=== PATIENT | female | born 1950 | race Caucasian/White ===

== ENCOUNTER 2018-03-03 09:44 | Emergency (ER) | payer MEDICARE ==
[~2018-03-03] VITALS: Ht 157.5 cm; Wt 46.6 kg
[2018-03-03 10:23] LABS: HEMATOCRIT 43.9 % (37.0-47.0); IMMATURE GRANULOCYTES 0.2 % (0.0-1.0); MEAN CELL VOLUME 92.2 fL CALC (80.0-100.0); MEAN CORPUSCULAR HGB 31.5 pG CALC (26.0-32.0); MEAN CORPUSCULAR HGB CONC 34.2 g/L CALC (32.0-36.0); NEUT# 3.4 thou/uL (2.00-7.15); RED BLOOD COUNT 4.76 mill/uL (4.20-5.60); RED CELL DISTRI WIDTH 12.8 % (11.5-15.5)
[2018-03-03 10:38] LABS: ALKALINE PHOSPHATASE 57 u/l (38-126); AMYLASE 89 u/l (30-110); ANION GAP 17 (6-22 (CALC)); BILIRUBIN, TOTAL 0.4 mg/dL (0.0-1.4); BUN 14 mg/dL (8-23); BUN/CREATININE RATIO 20 (12-20 (CALC)); CARBON DIOXIDE 21 mmol/l (22-30); CHLORIDE 111 mmol/l (95-108); CREATININE 0.7 mg/dL (0.5-1.0); GFR > 60 ML/MIN (>=60 (CALC)); GFR FOR AFR.AMER. > 60 ML/MIN (>=60 (CALC)); LIPASE 108 u/l (23-300); MAGNESIUM 1.6 mg/dL (1.6-2.3); SGOT/AST 17 u/l (9-36); SGPT/ALT 28 u/l (11-66); SODIUM 144 mmol/l (137-146); TOTAL PROTEIN 6.9 g/dL (6.3-8.2)
[2018-03-03 10:53] LABS: URINE BILIRUBIN - DIPSTICK NEGATIVE (NEGATIVE); URINE BLOOD DIPSTICK TRACE-INTACT (NEGATIVE); URINE COLOR YELLOW; URINE GLUCOSE - DIPSTICK NEGATIVE (NEGATIVE); URINE KETONE NEGATIVE (NEGATIVE); URINE LEUK ESTERASE NEGATIVE (NEGATIVE); URINE NITRITE - DIPSTICK NEGATIVE (Negative); URINE PH 5.5 (4.5-8.0); URINE PROTEIN - DIPSTICK NEGATIVE (NEG-TRACE); URINE SPECIFIC GRAVITY >=1.030; URINE UROBILINOGEN - DIPSTICK 0.2 E.U./dL (0.2)
[2018-03-03 11:07] LABS: URINE CLARITY CLEAR
[2018-03-03 12:12] LABS: C. DIFFICILE TOXIN A&B NEGATIVE (NEGATIVE)
[2018-03-03] MEDS ORDERED: IMODIUM2 MG PO (12:23)
[2018-03-03] MEDS ORDERED: NEXIUM40 M1 PO (12:23)
[2018-03-03 12:35] VITALS: BP 136/79
== END 2018-03-03 12:34 | disposition home or self-care (01) ==
LOC: ED 09:44
PROVIDERS: Emergency Medicine
DX: R19.7 Diarrhea, unspecified (principal); F17.210 Nicotine dependence, cigarettes, uncomplicated

== ENCOUNTER 2018-03-10 08:36 | Day surgery (SDC) | payer MEDICARE ==
[~2018-03-10] VITALS: Ht 157.5 cm; Wt 45.8 kg
[~2018-03-10 08:36] MED LIST: IMODIUM2 MG PO; NEXIUM40 M1 PO
[2018-03-10 10:56] VITALS: BP 123/73
== END 2018-03-10 11:17 | disposition home or self-care (01) ==
LOC: ENDO 08:36 → ORM 10:00 → ENDO 11:17
PROVIDERS: ATTEND Internal Medicine Gastroenterology
PROC: 0DBP8ZX Excision of Rectum, Via Natural or Artificial Opening Endoscopic, Diagnostic (ICD-10-PCS; principal; 2018-03-10)
PROC: 0DBE8ZX Excision of Large Intestine, Via Natural or Artificial Opening Endoscopic, Diagnostic (ICD-10-PCS; 2018-03-10)
PROC: 0D758ZZ Dilation of Esophagus, Via Natural or Artificial Opening Endoscopic (ICD-10-PCS; 2018-03-10)
PROC: 0DB98ZX Excision of Duodenum, Via Natural or Artificial Opening Endoscopic, Diagnostic (ICD-10-PCS; 2018-03-10)
PROC: 0DB58ZX Excision of Esophagus, Via Natural or Artificial Opening Endoscopic, Diagnostic (ICD-10-PCS; 2018-03-10)
DX: R19.7 Diarrhea, unspecified (principal); R63.4 Abnormal weight loss; R19.5 Other fecal abnormalities; R11.0 Nausea; R14.0 Abdominal distension (gaseous); K22.8 Other specified diseases of esophagus; K22.2 Esophageal obstruction; K29.71 Gastritis, unspecified, with bleeding; K31.819 Angiodysplasia of stomach and duodenum without bleeding; K64.4 Residual hemorrhoidal skin tags; K64.8 Other hemorrhoids; K52.9 Noninfective gastroenteritis and colitis, unspecified; K62.1 Rectal polyp

== ENCOUNTER 2018-03-12 11:42 | Inpatient (IN) | payer MEDICARE ==
[~2018-03-12] VITALS: Ht 157.5 cm; Wt 43.0 kg
[2018-03-12 12:31] LABS: IMMATURE GRANULOCYTES 0.3 % (0.0-1.0); MEAN CELL VOLUME 91.3 fL CALC (80.0-100.0); MEAN CORPUSCULAR HGB CONC 33.9 g/L CALC (32.0-36.0); NEUT# 4.8 thou/uL (2.00-7.15); RED BLOOD COUNT 5.49 mill/uL (4.20-5.60); RED CELL DISTRI WIDTH 12.3 % (11.5-15.5)
[2018-03-12 12:41] LABS: ALBUMIN 4.4 g/dL (3.2-5.0); ALKALINE PHOSPHATASE 63 u/l (38-126); ANION GAP 19 (6-22 (CALC)); BILIRUBIN, TOTAL 0.4 mg/dL (0.0-1.4); BUN 19 mg/dL (8-23); BUN/CREATININE RATIO 23 (12-20 (CALC)); CARBON DIOXIDE 25 mmol/l (22-30); CHLORIDE 100 mmol/l (95-108); CREATININE 0.8 mg/dL (0.5-1.0); GFR > 60 ML/MIN (>=60 (CALC)); GFR FOR AFR.AMER. > 60 ML/MIN (>=60 (CALC)); LIPASE 135 u/l (23-300); POTASSIUM 3.8 mmol/l (3.5-5.1); SGOT/AST 19 u/l (9-36); SGPT/ALT 34 u/l (11-66); SODIUM 140 mmol/l (137-146); TOTAL PROTEIN 7.4 g/dL (6.3-8.2)
[2018-03-12 12:56] LABS: HEMATOCRIT 50.1 % (37.0-47.0)
[2018-03-12 14:45] LABS: URINE BLOOD DIPSTICK TRACE-INTACT (NEGATIVE); URINE COLOR YELLOW; URINE GLUCOSE - DIPSTICK NEGATIVE (NEGATIVE); URINE KETONE 15 mg/dL (NEGATIVE); URINE LEUK ESTERASE NEGATIVE (NEGATIVE); URINE NITRITE - DIPSTICK NEGATIVE (Negative); URINE PH 5.5 (4.5-8.0); URINE PROTEIN - DIPSTICK NEGATIVE (NEG-TRACE); URINE UROBILINOGEN - DIPSTICK 0.2 E.U./dL (0.2)
[2018-03-12 14:48] LABS: URINE BILIRUBIN - DIPSTICK NEGATIVE (NEGATIVE); URINE CLARITY CLEAR
[2018-03-12 20:00] VITALS: BP 106/62
[2018-03-13] VITALS (10 sets, daily range): BP systolic 99–138; BP diastolic 57–82
[2018-03-13 05:04] LABS: MEAN CELL VOLUME 93.4 fL CALC (80.0-100.0); MEAN CORPUSCULAR HGB 31.6 pG CALC (26.0-32.0); MEAN CORPUSCULAR HGB CONC 33.8 g/L CALC (32.0-36.0); RED BLOOD COUNT 3.93 mill/uL (4.20-5.60); RED CELL DISTRI WIDTH 12.2 % (11.5-15.5)
[2018-03-13 05:12] LABS: HEMATOCRIT 36.7 % (37.0-47.0); HEMOGLOBIN 12.4 g/dl (12.0-16.0)
[2018-03-13 05:13] LABS: ANION GAP 13 (6-22 (CALC)); BUN 8 mg/dL (8-23); BUN/CREATININE RATIO 14 (12-20 (CALC)); CARBON DIOXIDE 20 mmol/l (22-30); CHLORIDE 111 mmol/l (95-108); CREATININE 0.6 mg/dL (0.5-1.0); GFR > 60 ML/MIN (>=60 (CALC)); GFR FOR AFR.AMER. > 60 ML/MIN (>=60 (CALC)); MAGNESIUM 1.4 mg/dL (1.6-2.3); POTASSIUM 3.6 mmol/l (3.5-5.1); SODIUM 140 mmol/l (137-146)
[2018-03-13 09:47] LABS: CHOLESTEROL HDL RATIO 3.3 (<4.4 (CALC))
[2018-03-14] VITALS: BP 102/71
[2018-03-14 04:00] VITALS: BP 118/66
[2018-03-14 05:01] LABS: HEMATOCRIT 38.9 % (37.0-47.0); HEMOGLOBIN 12.8 g/dl (12.0-16.0); IMMATURE GRANULOCYTES 0.2 % (0.0-1.0); MEAN CELL VOLUME 95.1 fL CALC (80.0-100.0); MEAN CORPUSCULAR HGB 31.3 pG CALC (26.0-32.0); MEAN CORPUSCULAR HGB CONC 32.9 g/L CALC (32.0-36.0); NEUT# 2.08 thou/uL (2.00-7.15); RED BLOOD COUNT 4.09 mill/uL (4.20-5.60); RED CELL DISTRI WIDTH 12.4 % (11.5-15.5)
[2018-03-14 05:18] LABS: ANION GAP 11 (6-22 (CALC)); BUN 2 mg/dL (8-23); BUN/CREATININE RATIO 4 (12-20 (CALC)); CARBON DIOXIDE 23 mmol/l (22-30); CHLORIDE 112 mmol/l (95-108); CREATININE 0.5 mg/dL (0.5-1.0); GFR > 60 ML/MIN (>=60 (CALC)); GFR FOR AFR.AMER. > 60 ML/MIN (>=60 (CALC)); SODIUM 142 mmol/l (137-146)
[2018-03-14 06:15] VITALS: BP 106/44
[2018-03-14 07:18] VITALS: BP 108/62
[2018-03-14 17:48] VITALS: BP 127/75
[2018-03-14 19:38] VITALS: BP 121/76
[2018-03-15 04:09] VITALS: BP 138/72
[2018-03-15 06:41] LABS: ALKALINE PHOSPHATASE 37 u/l (38-126); ANION GAP 12 (6-22 (CALC)); BILIRUBIN, TOTAL 0.3 mg/dL (0.0-1.4); CARBON DIOXIDE 22 mmol/l (22-30); CHLORIDE 112 mmol/l (95-108); CREATININE 0.5 mg/dL (0.5-1.0); GFR > 60 ML/MIN (>=60 (CALC)); GFR FOR AFR.AMER. > 60 ML/MIN (>=60 (CALC)); HEMATOCRIT 36.6 % (37.0-47.0); HEMOGLOBIN 12.4 g/dl (12.0-16.0); IMMATURE GRANULOCYTES 0.7 % (0.0-1.0); MEAN CELL VOLUME 92.2 fL CALC (80.0-100.0); MEAN CORPUSCULAR HGB 31.2 pG CALC (26.0-32.0); MEAN CORPUSCULAR HGB CONC 33.9 g/L CALC (32.0-36.0); NEUT# 2.69 thou/uL (2.00-7.15); POTASSIUM 3.5 mmol/l (3.5-5.1); RED BLOOD COUNT 3.97 mill/uL (4.20-5.60); RED CELL DISTRI WIDTH 12.1 % (11.5-15.5); SGOT/AST 16 u/l (9-36); SGPT/ALT 28 u/l (11-66); SODIUM 142 mmol/l (137-146)
[2018-03-15 06:45] LABS: BUN < 2 mg/dL (8-23); MAGNESIUM 1.4 mg/dL (1.6-2.3)
[2018-03-15 06:46] LABS: ALBUMIN 2.5 g/dL (3.2-5.0); BUN/CREATININE RATIO < 4 (12-20 (CALC)); TOTAL PROTEIN 4.9 g/dL (6.3-8.2)
[2018-03-15 07:45] VITALS: BP 134/78
[2018-03-15] MEDS ORDERED: FLORASTOR250 M1 PO (10:18)
[2018-03-15] MEDS ORDERED: MAGNESIUM OXID400 M2 PO (10:22)
== END 2018-03-15 13:45 | disposition home or self-care (01) | DRG 392 ==
LOC: ED 11:42 → ED-I 14:48 → ED 15:03 → ICU 15:04 → MS2 03-14 06:15
PROVIDERS: Family Medicine; Nurse Practitioner Family; ADMIT Internal Medicine; ATTEND Internal Medicine
DX: K58.0 Irritable bowel syndrome with diarrhea (principal); E83.42 Hypomagnesemia; Z68.1 Body mass index [BMI] 19.9 or less, adult; E86.0 Dehydration; F17.210 Nicotine dependence, cigarettes, uncomplicated; R63.4 Abnormal weight loss; Z86.010 Personal history of colon polyps
CPT/HCPCS: J3475; Q9967

== ENCOUNTER 2018-07-25 15:13 | Inpatient (IN) | payer MEDICARE ==
[~2018-07-25] VITALS: Ht 157.5 cm; Wt 40.0 kg
[~2018-07-25 15:13] MED LIST changes: +ALPRAZOLAM0.5 MG PO; +BENTYL10 MG PO; +CHOLESTYRAMI PO; +FLORASTOR250 M1 PO; +LOMOTIL2.5 MG PO; +MAGNESIUM OXID400 M2 PO; +METRONIDAZOLE500 MG PO; +VIBERZI75 MG PO; +[UNRECOGNIZED DRUG - CODE] PO
[2018-07-25 15:52] VITALS: BP 100/60
[2018-07-25 16:21] LABS: URINE BILIRUBIN - DIPSTICK NEGATIVE (NEGATIVE); URINE BLOOD DIPSTICK TRACE-LYSED (NEGATIVE); URINE CLARITY CLEAR; URINE COLOR YELLOW; URINE GLUCOSE - DIPSTICK NEGATIVE (NEGATIVE); URINE KETONE NEGATIVE (NEGATIVE); URINE LEUK ESTERASE NEGATIVE (NEGATIVE); URINE NITRITE - DIPSTICK NEGATIVE (Negative); URINE PH 5.5 (4.5-8.0); URINE PROTEIN - DIPSTICK NEGATIVE (NEG-TRACE); URINE SPECIFIC GRAVITY 1.025; URINE UROBILINOGEN - DIPSTICK 0.2 E.U./dL (0.2)
[2018-07-25 16:35] LABS: HEMATOCRIT 44.5 % (37.0-47.0); HEMOGLOBIN 15.1 g/dl (12.0-16.0); IMMATURE GRANULOCYTES 0.4 % (0.0-5.0); MEAN CELL VOLUME 89.2 fL CALC (80.0-100.0); MEAN CORPUSCULAR HGB 30.3 pG CALC (26.0-32.0); MEAN CORPUSCULAR HGB CONC 33.9 g/L CALC (32.0-36.0); NEUT# 10.67 thou/uL (2.00-7.15); RED BLOOD COUNT 4.99 mill/uL (4.20-5.60); RED CELL DISTRI WIDTH 12.2 % (11.5-15.5)
[2018-07-25] MEDS ORDERED: ACETAMINOPHEN500 MG PO (16:38)
[2018-07-25 16:56] LABS: ANION GAP 14 (6-22 (CALC)); BUN 12 mg/dL (8-23); BUN/CREATININE RATIO 14 (12-20 (CALC)); CARBON DIOXIDE 27 mmol/l (22-30); CHLORIDE 105 mmol/l (95-108); CREATININE 0.8 mg/dL (0.5-1.0); GFR > 60 ML/MIN (>=60 (CALC)); GFR FOR AFR.AMER. > 60 ML/MIN (>=60 (CALC)); POTASSIUM 4.1 mmol/l (3.5-5.1); SODIUM 142 mmol/l (137-146)
--- NOTE | 2018-07-25 17:02 | NUR ---
PT ARRIVED ON UNIT VIA W/C SENT BY DR JOINER, ALERT AND ORIENTED X 3, C/O CRAMPING ABD PAIN @ 07/07 AND STATED SHE HAS BEEN HAVING DIARRHEA SINCE DECEMBER 2017, LOST MORE THAN 20 LBS SINCE THEN AND HAVE BEEN TO DOCTORS MANY TIMES WITH NO RESULT. ORIENTED TO ROOM AND CALL LOW, SETTLED IN BED, INFORMED OF NEW ORDERS, WILL CONTINUE TO MONITOR.
--- NOTE | 2018-07-25 19:30 | NUR ---
PT RETURNED TO FLOOR FROM RADIOLOGY FOR CT SCAN AND CHEST XRAY. PT STABLE, BUT VOMITED ONE TIME 100CC JUST UPON ARRIVING TO FLOOR. PT PROVIDED EMESIS BAG AND COOL WASH CLOTH FOR COMFORT. CALL LIGHT AT BEDSIDE.
[2018-07-25 20:00] VITALS: BP 100/63
--- NOTE | 2018-07-25 20:41 | NUR ---
SPOKE WITH PHYSICIAN REGARDING KUB XRAY ORDER/ORDER CANCELLED AT THIS TIME. WILL CONTINUE TO MONITOR PT.
--- NOTE | 2018-07-25 21:15 | NUR ---
PT MEDICATED W/IV ANTIBIOTIC THERAPY, ASSISTED TO RESTROOM AND BACK TO BED, PT ASSESSED. LUNG SOUNDS ARE CLEAR, ABD SOFT/TENDER IN ALL QUADRANTS W/ACTIVE BOWEL SOUNDS. SKIN IS INTACT, NEURO'S INTACT, NO NOTED EDEMA PRESENT, STRONG PULSES/PEDALS, LOCX3, NO SOB. PT REPORTS PAIN IS "STARTING TO RETURN"/WILL MEDICATE ORDERS ALLOW. C/O NAUSEA/PT VOMITED 200CC OF CLEAR LIQUID EMESIS WHILE I WAS IN THE ROOM. SHE REPORTS THAT SHE HAS BEEN DRINKING "LOTS OF WATER, I WAS SO THIRSTY." I TALKED W/THE PT AND ENCOURAGED HER TO SLOW DOWN ON PO WATER INTAKE AND TAKE SMALL SIPS. POC DISCUSSED. TEMP CHECKED AT 99.2. PT HAD 5 BLANKETS ON I DISCUSSED THIS WITH HER, REMOVED ALL BUT ONE BLANKET, ROOM IS TURNED COOL. COOL WASHCLOTH PROVIDED. PT FEELS "CHILLED." LEFT AT BEDSIDE, CALL LIGHT W/IN REACH.
--- NOTE | 2018-07-25 22:27 | NUR ---
PT MEDICATED ORDERS PROVIDE. PT REQUESTED MUNA-JEREL/PROVIDED. MEDICATED FOR NAUSEA,PAIN REPORTED 7/10 ON PAIN SCALE, PT ALSO MEDICATED FOR ANXIOUSNESS/PT IS SHIVERING AND APPEARS VERY FIDGETY. ALSO MEDICATED FOR TEMP OF 100.5 AND CHILLS. ROOM IS COOL, PT LEFT WITH ONE BLANKET ON. HAS LEFT. ASSISTED PT TO RESTROOM AND BACK TO BED, AMBULATED WELL W/1X STANDBY. CALL LIGHT AT BEDSIDE.
[2018-07-26 00:30] LABS: C. DIFFICILE TOXIN A&B POSITIVE (NEGATIVE)
--- NOTE | 2018-07-26 02:50 | NUR ---
ENTERED ROOM TO ASSESS IF PT HAD URINATED AND POSSIBLY NOT CALLED, SHE HAD NOT. I ASKED PT TO AMBULATE TO RESTROOM AND SEE IF SHE COULD TRY TO URINATE, 250CC OF DARK YELLOW URINE EMPTIED INTO HAT. THIS URINE WAS WASTED, WHICH STARTED THE CLOCK FOR 24HR URINE COLLECTION. PT ASSISTED BACK TO BED AND REPOSTIONED. CALL LIGHT AT BEDSIDE.
--- NOTE | 2018-07-26 04:25 | NUR ---
PT ASSISTED BACK TO BED FROM RESTROOM AND REPOSITIONED. PT URINATED IN TOILET INSTEAD OF HAT AND URINE WAS UNABLE TO BE SAVED. PT HAD 1 LARGE LOOSE LIGHT BROWN STOOL. PT DENIES ANY OTHER NEEDS, CALL LIGHT AT SIDE.
[2018-07-26 05:14] VITALS: BP 93/56
[2018-07-26 05:46] LABS: IMMATURE GRANULOCYTES 0.3 % (0.0-5.0); MEAN CELL VOLUME 90.6 fL CALC (80.0-100.0); MEAN CORPUSCULAR HGB CONC 33.1 g/L CALC (32.0-36.0); NEUT# 10.15 thou/uL (2.00-7.15); RED BLOOD COUNT 4.17 mill/uL (4.20-5.60); RED CELL DISTRI WIDTH 12.2 % (11.5-15.5)
[2018-07-26 05:47] LABS: HEMATOCRIT 37.8 % (37.0-47.0); HEMOGLOBIN 12.5 g/dl (12.0-16.0)
[2018-07-26 05:51] LABS: ALBUMIN 3.3 g/dL (3.2-5.0); ALKALINE PHOSPHATASE 26 u/l (38-126); ANION GAP 13 (6-22 (CALC)); BILIRUBIN, TOTAL 0.6 mg/dL (0.0-1.4); BUN 11 mg/dL (8-23); BUN/CREATININE RATIO 17 (12-20 (CALC)); CARBON DIOXIDE 25 mmol/l (22-30); CHLORIDE 104 mmol/l (95-108); CREATININE 0.7 mg/dL (0.5-1.0); GFR > 60 ML/MIN (>=60 (CALC)); GFR FOR AFR.AMER. > 60 ML/MIN (>=60 (CALC)); POTASSIUM 3.7 mmol/l (3.5-5.1); SGOT/AST 14 u/l (9-36); SGPT/ALT 23 u/l (11-66); SODIUM 139 mmol/l (137-146); TOTAL PROTEIN 5.9 g/dL (6.3-8.2)
--- NOTE | 2018-07-26 07:27 | NUR ---
BEDSIDE REPORT RECEIVED BY ZOHRA. NO S/S OF DISTRESS NOTED. CALL LIGHT IN REACH. DR. JOINER AT BEDSIDE TO ASSESS PT.
[2018-07-26 07:58] VITALS: BP 98/58
--- NOTE | 2018-07-26 07:58 | NUR ---
MEDICATED PT WITH TYLENOL FOR HEADACHE 06/06. ASSESSMENT DONE. RESPS EVEN AND UNLABORED. D51/2NS 120ML/HR INFUSING WELL. NOTIFIED PT RE: THE 24HRS URINE COLLECTION. PT VERBALIZED UNDERSTANDING. PT DENIES ANY OTHER NEEDS AT THIS TIME. SAFETY PRECAUTIONS REINFROCED AND CALL LIGHT IN REACH.
[2018-07-26 11:54] VITALS: BP 90/53
--- NOTE | 2018-07-26 11:56 | NUR ---
MEDICATED PT WITH DILAUDID FOR PAIN IN ABD 06/06. ALSO, MEDICATED PT WITH ZOFRAN. PT DENIES ANY OTHER NEEDS AT THIS TIME. CALL LIGHT IN REACH.
--- NOTE | 2018-07-26 16:00 | NUR ---
PT IS RESTING IN BED. PT DENIES NEEDS AT THIS TIME. FAMILY IN ROOM. CALL LIGHT IN REACH.
[2018-07-26 16:06] VITALS: BP 96/53
[2018-07-26 19:54] VITALS: BP 111/59
--- NOTE | 2018-07-26 20:35 | NUR ---
PT MEDICATED ORDERS PROVIDE WITH IV ANTIBIOTIC THERAPY AND ASSISTED TO RESTROOM AND BACK TO BED. PT HAD 4 BLANKETS ON BED AND TEMP IS 99.2. POC DISCUSSED AND IT EXPLAINED TO THE PT REMOVING A COUPLE OF THE BLANKETS TO PREVENT HER TEMP FROM CLIMBING AGAIN IT DID LAST NIGHT. SHE AGREED TO TWO BLANKETS AND ROOM COOLED, WILL REEVALUATE/ASSESS FOR TEMP. PT APPEARS CALM, BUT EXPRESSED TIRING FROM BEING SICK. PT URINATED CLEAR YELLOW URINE 300CC AND SMALL SOFT BROWN BM AT THIS TIME. LUNG SOUNDS ARE CLEAR, ABD SOFT/TENDER ALL QUAD WITH ACTIVE BOWEL SOUNDS THROUGHOUT. CALL LIGHT IS AT SIDE AND PT ENCOURAGED TO CALL IF ANY OTHER NEEDS ARISE.
--- NOTE | 2018-07-26 21:55 | NUR ---
PT MEDICATED FOR NAUSEA AND SLEEP/ANXIETY AIDE. PT REPORTS SOME CRAMPING IN ABD, BUT STATES SHE DOES NOT WANT TO TAKE PAIN MEDICATION AND WANTS TO TRY AND LET THE OTHER TWO MEDICATIONS TAKE EFFECT. EMESIS BAG EMPTIED OF 125MLS OF YELLOW FROTHY EMESIS. NO OTHER S/O DISTRESS NOTED. PT IS TALKATIVE AND INTERACTIVE W/CARE AT THIS TIME. WILL CONTINUE TO MONITOR/ASSESS FOR NEEDS. CALL LIGHT AT SIDE
--- NOTE | 2018-07-27 00:25 | NUR ---
PT SLEEPING SOUNDLY, BUT AWOKE TO MY VOICE. PT MEDICATED W/PO ANTIBIOTIC THERAPY. TEMP CHECKED @99.3. NO S/S OF DISTRESS NOTED. CALL LIGHT AT SIDE, DENIES ANY OTHER NEEDS AT THIS TIME.
--- NOTE | 2018-07-27 03:30 | NUR ---
PT 24HR URINE WAS STOPPED AND TAKEN TO LAB. PT SLEEPING SOUNDLY NO S/S OF DISTRESS
[2018-07-27 05:12] VITALS: BP 119/69
[2018-07-27 05:57] LABS: HEMATOCRIT 36.9 % (37.0-47.0); HEMOGLOBIN 12.4 g/dl (12.0-16.0); IMMATURE GRANULOCYTES 0.3 % (0.0-5.0); MEAN CELL VOLUME 89.3 fL CALC (80.0-100.0); MEAN CORPUSCULAR HGB CONC 33.6 g/L CALC (32.0-36.0); NEUT# 5.16 thou/uL (2.00-7.15); RED BLOOD COUNT 4.13 mill/uL (4.20-5.60); RED CELL DISTRI WIDTH 11.9 % (11.5-15.5)
[2018-07-27 06:16] LABS: ALBUMIN 3.1 g/dL (3.2-5.0); ALKALINE PHOSPHATASE 35 u/l (38-126); ANION GAP 11 (6-22 (CALC)); BILIRUBIN, TOTAL 0.3 mg/dL (0.0-1.4); BUN 3 mg/dL (8-23); BUN/CREATININE RATIO 4 (12-20 (CALC)); CARBON DIOXIDE 27 mmol/l (22-30); CHLORIDE 107 mmol/l (95-108); CREATININE 0.6 mg/dL (0.5-1.0); GFR > 60 ML/MIN (>=60 (CALC)); GFR FOR AFR.AMER. > 60 ML/MIN (>=60 (CALC)); SGOT/AST 15 u/l (9-36); SGPT/ALT 25 u/l (11-66); SODIUM 142 mmol/l (137-146); TOTAL PROTEIN 5.7 g/dL (6.3-8.2)
--- NOTE | 2018-07-27 07:00 | NUR ---
BEDSIDE REPORT RECEIVED BY ZOHRA. PT IS STANDING IN THE SIDE OF THE BED WITH NO S/S OF DISTRESS NOTED. PT DENIES NEEDS AT THIS TIME. CALL LIGHT IN REACH.
[2018-07-27 08:30] VITALS: BP 120/67
--- NOTE | 2018-07-27 08:52 | NUR ---
ASSESSMENT DONE. MEDICATED PT WITH ZOFRAN. PT HAS PAIN IN ABD 03/06 BUT REFUSED PAIN MEDICATION AT THIS TIME. RESPS EVEN AND UNLABORED. PT IS A&O X3. D51/2NS 120 ML/HR INFUSING WELL. PT DENIES ANY OTHER NEEDS AT THIS TIME. SAFETY PRECAUTIONS REINFORCED AND CALL LIGHT IN REACH.
--- NOTE | 2018-07-27 10:05 | NUR ---
DR. JOINER AT BEDSIDE TO ASSESS PT AT THIS TIME.
--- NOTE | 2018-07-27 11:19 | NUR ---
PT STATED THAT THE PAIN MEDICATION HELPED. PT IS RESTING IN BED WITH NO S/S OF DISTRESS NOTED. PO FLUIDS PROVIDED. PT DENIES ANY OTHER NEEDS AT THIS TIME. CALL LIGHT IN REACH.
[2018-07-27 15:30] VITALS: BP 123/66
--- NOTE | 2018-07-27 16:03 | NUR ---
MEDICATED PT WITH DILAUDID FOR PAIN IN ABD SEE EMAR. PT IN ROOM. PT DENIES ANY OTHER NEEDS AT THIS TIME. CALL LIGHT IN REACH.
--- NOTE | 2018-07-27 19:24 | NUR ---
BEDSIDE REPORT RECEIVED FROM ELBA KIRK. PT RESTING IN BED SEMI FOWLERS WITH FAMILY MEMBER AT BEDSIDE; ALERT AND ORIENTED. C/O MILD ABDOMINAL PAIN; STATES THAT DILAUDID WAS EFFECTIVE. RESPIRATIONS EVEN AND UNLABORED ON ROOM AIR. PLAN OF CARE DISCUSSED. PT ENCOURAGED TO VERBALIZE CONCERNS. STATES UNDERSTANDING. SAFETY MEASURES IN PLACE. CALL LIGHT WITHIN REACH.
[2018-07-27 20:01] VITALS: BP 132/72
--- NOTE | 2018-07-28 00:18 | NUR ---
PT RESTING IN BED ON RIGHT SIDE WITH EYES CLOSED; AWAKENS TO VERBAL STIMULI. DIALUDID GIVEN FOR ABDOMINAL PAIN WITH GOOD EFFECT; PT CURRENTLY DENIES PAIN. RESPIRATIONS EVEN AND UNLABORED ON ROOM AIR. PT HAS HAD 2 WATERY GREEN BOWEL MOVEMENTS SO FAR THIS SHIFT. IV FLUIDS INFUSING WITHOUT DIFFICULTY; IV SITE APPEARS HEALTHY. REMAINS ON CONTACT PRECAUTIONS FOR CDIFF. PT IS STAND BY ASSIST AND AMBULATORY. NO REQUESTS OR CONCERNS AT THIS TIME. SAFETY MEASURES IN PLACE. CALL LIGHT WITHIN REACH.
[2018-07-28 04:00] VITALS: BP 132/71
--- NOTE | 2018-07-28 04:17 | NUR ---
PT ASLEEP AT THIS TIME WITH NO SIGNS OF DISTRESS. RESPIRATIONS EVEN AND UNLABORED ON ROOM AIR. NO ACUTE CHANGES IN CONDITION THROUGHOUT THE NIGHT. SAFETY MEASURES IN PLACE. CALL LIGHT WITHIN REACH.
[2018-07-28 04:58] LABS: HEMATOCRIT 38.3 % (37.0-47.0); HEMOGLOBIN 12.8 g/dl (12.0-16.0); IMMATURE GRANULOCYTES 0.4 % (0.0-5.0); MEAN CELL VOLUME 90.3 fL CALC (80.0-100.0); MEAN CORPUSCULAR HGB 30.2 pG CALC (26.0-32.0); MEAN CORPUSCULAR HGB CONC 33.4 g/L CALC (32.0-36.0); NEUT# 2.54 thou/uL (2.00-7.15); RED BLOOD COUNT 4.24 mill/uL (4.20-5.60); RED CELL DISTRI WIDTH 11.9 % (11.5-15.5)
[2018-07-28 05:21] LABS: ALBUMIN 3.2 g/dL (3.2-5.0); ALKALINE PHOSPHATASE 28 u/l (38-126); ANION GAP 11 (6-22 (CALC)); BILIRUBIN, TOTAL 0.3 mg/dL (0.0-1.4); CARBON DIOXIDE 26 mmol/l (22-30); CHLORIDE 109 mmol/l (95-108); CREATININE 0.6 mg/dL (0.5-1.0); GFR > 60 ML/MIN (>=60 (CALC)); GFR FOR AFR.AMER. > 60 ML/MIN (>=60 (CALC)); SGOT/AST 19 u/l (9-36); SODIUM 142 mmol/l (137-146); TOTAL PROTEIN 5.7 g/dL (6.3-8.2)
[2018-07-28 05:32] LABS: POTASSIUM 3.9 mmol/l (3.5-5.1)
[2018-07-28 05:33] LABS: BUN < 2 mg/dL (8-23); BUN/CREATININE RATIO < 3 (12-20 (CALC))
--- NOTE | 2018-07-28 07:19 | NUR ---
PT REPORT RECIEVED FROM ELBA MEZA. PT RESTING IN BED. NO S/S OF DISTRESS NOTED. CALL LIGHT IN REACH. WILL CONTINUE TO MONITOR.
[2018-07-28 07:38] VITALS: BP 120/65
--- NOTE | 2018-07-28 07:38 | NUR ---
PT ASSESSMENT COMPLETE. PT A/O X3. SPEECH IS CLEAR. RESP EVEN AND UNLABORED. LUNG SOUNDS CLEAR. LAST BM 07/28/18. ABD ROUND, SOFT. FREQUENT GREEN, LOOSE LIQUID STOOLS. PT STATES BURNING, CRAMPING ABD PAIN 7 OUT OF 10. AND CONSTANT NAUSEA. PAIN MEDICATIONS OFFERED. PT DENIED ANY MEDICATIONS. PAIN SCALE AND MEDICATION ADMINISTRATION REINFORCED W/ PT. PT STATES UNDERSTANDING. STRONG RADIAL AND PEDAL PULSES. #22 LFA D5 @75 W/ 20 K+. SITE APPEARS HEALTHY. CONTACT + PRECAUTIONS IN PLACE FOR C DIFF. PLAN OF CARE DISCUSSED. SAFETY PRECAUTIONS IN PLACE. CALL LIGHT IN REACH. WILL CONTINUE TO MONITOR.
--- NOTE | 2018-07-28 11:48 | NUR ---
PT STATES CRAMPING ABD PAIN 8 OUT OF 10. PT MEDICATED W/ 4MG ZOFRAN AND 2MG OF DILAUDID.
--- NOTE | 2018-07-28 12:00 | NUR ---
PT RESTING IN BED. NO S/S OF DISTRESS NOTED. PT STATES DECREASING ABD PAIN 5 OUT OF 10. RELAXATION TECHNIQUES REINFORCED. PT DENIES ANY FURTHER NEEDS AT THIS TIME. CALL LIGHT IN REACH. WILL CONITNUE TO MONITOR.
[2018-07-28 15:45] VITALS: BP 135/80
--- NOTE | 2018-07-28 16:42 | NUR ---
PT REPORTS CRAMPING ABD PAIN 8 OUT 10. PT MEDICATED W/ 4 MG ZOFRAN AND 1 MG OF DILAUDID. WILL CONTINUE TO MONITOR.
--- NOTE | 2018-07-28 16:59 | NUR ---
PAIN REASSESSED. PT STATES ABOMINAL IS DECREASING, NOW 6 OUT 10 ON PAIN SCALE. RELAXATION TECHNIQUES ENFORCED. RESP EVEN AND UNLABORED. PT DENIES ANY FURTHER NEEDS AT THIS TIME. CALL LIGHT IN REACH. WILL CONTINUE TO MONITOR.
[2018-07-28 19:12] VITALS: BP 135/76
--- NOTE | 2018-07-28 19:35 | NUR ---
BEDSIDE REPORT RECEIVED FROM DAVE ZAMORA. PT RESTING IN BED SEMI FOWLERS WITH FAMILY MEMBER AT BEDSIDE; ALERT AND ORIENTED. PT C/O MODERATE ABOMINAL PAIN; STATES, "I'M NOT TAKING ANY MORE DILAUDID UNLESS I FEEL LIKE I AM DYING IN PAIN." OTHER TECHNIQUES IN PLACE TO HELP RELIEVE PAIN. RESPIRATIONS EVEN AND UNLABORED ON ROOM AIR. SHE STATES THAT SHE IS STILL IS HAVING SMALL FRQUENT BOWEL MOVEMENTS. PLAN OF CARE REVIEWED. PT ENCOURAGED TO VERBALIZE CONCERNS. STATES UNDERSTANDING. SAFETY MEASURES IN PLACE.
--- NOTE | 2018-07-29 | NUR ---
PT AWAKE AND AMBULATING INTO BATHROOM AT THIS TIME. C/O ABDOMINAL PAIN, BUT DECINES ANY PAIN MEDICATION AT THIS TIME. REPOSITIONING AND SPLINTING ENCOURAGED. REMAINS ON CONTACT PLUS PRECAUTIONS. IV SITE APPEARS HEALTHY. STAND BY ASSIST. SAFETY MEASURES IN PLACE. CALL LIGHT WITHIN REACH.
--- NOTE | 2018-07-29 04:17 | NUR ---
PT ASLEEP AT THIS TIME. NO ACUTE CHANGES IN CONDITION THROUGHOUT THE NIGHT. SAFTETY MEASURES IN PLACE. CALL LIGHT WITHIN REACH.
[2018-07-29 04:26] VITALS: BP 124/79
[2018-07-29 04:43] LABS: HEMATOCRIT 36.6 % (37.0-47.0); HEMOGLOBIN 12.7 g/dl (12.0-16.0); IMMATURE GRANULOCYTES 0.5 % (0.0-5.0); MEAN CELL VOLUME 87.1 fL CALC (80.0-100.0); MEAN CORPUSCULAR HGB 30.2 pG CALC (26.0-32.0); MEAN CORPUSCULAR HGB CONC 34.7 g/L CALC (32.0-36.0); NEUT# 2.56 thou/uL (2.00-7.15); RED BLOOD COUNT 4.2 mill/uL (4.20-5.60); RED CELL DISTRI WIDTH 11.9 % (11.5-15.5)
[2018-07-29 04:53] LABS: ANION GAP 11 (6-22 (CALC)); CARBON DIOXIDE 25 mmol/l (22-30); CHLORIDE 109 mmol/l (95-108); CREATININE 0.6 mg/dL (0.5-1.0); GFR > 60 ML/MIN (>=60 (CALC)); GFR FOR AFR.AMER. > 60 ML/MIN (>=60 (CALC)); POTASSIUM 3.7 mmol/l (3.5-5.1); SODIUM 141 mmol/l (137-146)
[2018-07-29 04:54] LABS: BUN < 2 mg/dL (8-23); BUN/CREATININE RATIO < 3 (12-20 (CALC))
--- NOTE | 2018-07-29 07:10 | NUR ---
PT REPORT RECIEVED FROM ELBA MEZA. PT RESTING IN BED. NO S/S OF DISTRESS NOTED. CALL LIGHT IN REACH. WILL CONTINUE TO MONITOR.
[2018-07-29 07:31] VITALS: BP 130/77
--- NOTE | 2018-07-29 07:31 | NUR ---
PT ASSESSMENT COMPLETE. A/O X3. SPEECH IS CLEAR. RESP EVEN AND UNLABORED. LUNG SOUNDS CLEAR. O2 @2L AT BEDSIDE. PT STATES 2 LOOSE, GREEN STOOLS THIS MORNING. ABDOMEN ROUND, SOFT. PT STATES ABDOMINAL PAIN 7 OUT OF 10 ON PAIN SCALE. DISCUSSED WITH PT MEDICATION ADMINISTRATION. PT DENIES ANY MEDICATIONS AT THIS TIME. STRONG RADIAL AND PEDAL PULSES. #22 LFA SL. SITE APPEARS HEALTHY. FLUSHED AND PATENT. PLAN OF CARE DISCUSSED. PT STATES UNDERSTANDING. SAFETY PRECAUTIONS IN PLACE. CALL LIGHT IN REACH. WILL CONTINUE TO MONITOR.
--- NOTE | 2018-07-29 08:30 | NUR ---
DR JOINER IN TO SEE PT. PLAN OF CARE DISCUSSED. DIET DISCUSSED. PT STATES UNDERSTANDING.
--- NOTE | 2018-07-29 12:02 | NUR ---
PT REPORTS FEELING NAUSEOUS. MEDICATED W/ 4MG OF ZOFRAN IV. RELAXATION TECHNIQUES ENFORCED. WILL CONTINUE TO MONITOR.
--- NOTE | 2018-07-29 12:24 | NUR ---
PT REPORTS CRAMPING ABDOMINAL PAIN 8 OUT OF 10 ON PAIN SCALE. MEDICATION AND PAIN SCALE MANAGEMENT REINFORCED W/ PT. PT DENIES ANY PAIN MEDICATION FOR ABDOMEN. RELAXATION AND REPOSITION TECHNIQUES ENFORCED. PT ASSISTED UP TO RESTROOM. SAFETY PRECAUTIONS IN PLACE CALL LIGHT IN PLACE. WILL CONTINUE TO MONITOR.
--- NOTE | 2018-07-29 14:06 | NUR ---
PER PT REQUEST, MEDICATION FOR ANXIETY. PT MEDICATED W/ 1 0.5 MG ATIVAN TAB. FRIENDS AT BESIDE. WILL CONTINUE TO MONITOR.
--- NOTE | 2018-07-29 14:30 | NUR ---
PT IN SEMI FOWLERS POSITION READING. PT STATES ANXIETY HAS DECREASES. ABDOMINAL PAIN INCONSISTENT, DECREASING AT THIS TME. CALL LIGHT IN REACH. WILL CONTINUE TO MONITOR.
[2018-07-29 15:25] VITALS: BP 144/77
--- NOTE | 2018-07-29 16:00 | NUR ---
PT RESTING IN BED. ABDOMINAL PAIN HAS REOCCURED 6 OUT OF 10 ON PAIN SCALE. PT DENIES PAIN MEDICATION AT THIS TIME. REPOSITIONING AND RELAXATION TECHNIQUES REINFORCED. CALL LIGHT IN REACH. WILL CONTINUE TO MONITOR.
[2018-07-29 18:58] VITALS: BP 135/78
--- NOTE | 2018-07-29 19:00 | NUR ---
BEDSIDE REPORT RECEIVED FROM DAVE ZAMORA. PT RESTING IN BED SEMI FOWLERS WITH AT BEDSIDE. C/O MODERATE ABOMINAL PAIN; DECLINES PAIN MEDICATION. SHE DOES C/O NAUSEA; ZOFRAN GIVEN AT THIS TIME. RESPIRATIONS EVEN AND UNLABORED ON ROOM AIR. PLAN OF CARE REVIEWED. PT ENCOURAGED TO EAT SMALL FREQUENT SNACKS REQUESTED BY DR. JOINER. ENCOURAGED TO VERBALIZE CONCERNS. STATES UNDERSTANDING. SAFETY MEASURES IN PLACE. CALL LIGHT WITHIN REACH.
--- NOTE | 2018-07-29 23:52 | NUR ---
PT ASLEEP AT THIS TIME; AWAKENS SPONTANEOUSLY AND VANCO PO ADMINISTERED. NO REQUESTS OR CONCERNS AT THIS TIME. IV FLUIDS INFUSING WITHOUT DIFFICULTY; IV SITE APPEARS HEALTHY. INDEPENDENT IN ROOM. SAFETY MEASURES IN PLACE. CALL LIGHT WITHIN REACH.
[2018-07-30 04:04] VITALS: BP 142/79
--- NOTE | 2018-07-30 04:12 | NUR ---
PT ASLEEP AT THIS TIME WITH NO SIGNS OF DISTRESS. NO ACUTE CHANGE IN CONDITION THROUGHOUT THE NIGHT. SAFETY MEASURES IN PLACE. CALL LIGHT WITHIN REACH.
[2018-07-30 08:00] VITALS: BP 128/74
--- NOTE | 2018-07-30 08:02 | NUR ---
PT SEEN AT REST IN THE BED, NO DISTRESS, NO COMPLAINT OF PAIN. SHE STATES LAST BM WAS MIDDAY YESTERDAY. SHE IS ABLE TO AMBULATE TO BR NEEDED WITHOUT ASSIST. LUNGS CLEAR, RA. IVF TO LFA, INFUSING NORMALLY.
--- NOTE | 2018-07-30 09:13 | NUR ---
PT SEEN BY DR JOINER THIS MORNING, PLAN TO DISCHARGE TOMORROW UNLESS HE CAN ARRANGE ANTIBIOTIC THERAPY.
[2018-07-30 11:30] VITALS: BP 126/76
--- NOTE | 2018-07-30 12:15 | NUR ---
PT CONTINUES BEFORE, RESTING IN THE BED, NO COMPLAINTS OF PAIN. PT DID SAY THAT SHE HAD DIARRHEA AGAIN.
--- NOTE | 2018-07-30 16:35 | NUR ---
PT BEFORE, RESTS IN THE BED IN NO ACUTE DISTRESS.
[2018-07-30 16:40] VITALS: BP 125/80
--- NOTE | 2018-07-30 19:10 | NUR ---
BEDSIDE REPORT RECEIVED FROM ELBA FOFANA. PT SITTING UP IN BED ON CELL PHONE; ALERT AND ORIENTED. PT STATES THAT HER PAIN HAS IMPROVED. RESPIRATIONS EVEN AND UNLABORED ON ROOM AIR. BS STILL HYPERACTIVE AND PT REPORTS CONTINUED FREQUENT SMALL WATERY STOOLS. PLAN OF CARE REVIEWED. ASSESSMENT COMPLETE. SAFETY MEASURES IN PLACE. CALL LIGHT WITHIN REACH.
[2018-07-30 20:00] VITALS: BP 154/78
--- NOTE | 2018-07-31 00:08 | NUR ---
VANCO PO ADMINISTERED AT THIS TIME; PT AWAKENED SPONTANEOUSLY. NO REQUESTS OR CONCERNS. IV FLUIDS INFUSING WITHOUT DIFFICULTY; IV SITE APPEARS HEALTHY. INDEPENDENT IN ROOM. SAFETY MEASURES IN PLACE. CALL LIGHT WITHIN REACH.
--- NOTE | 2018-07-31 04:00 | NUR ---
PT SLEEP AT THIS TIME WITH NO SIGNS OF DISTRESS. RESPIRATIONS EVEN AND UNLABORED ON ROOM AIR. NO ACUTE CHANGES IN CONDITION THROUGHOUT THE NIGHT. SAFETY MEASURES IN PLACE. CALL LIGHT WITHIN REACH.
[2018-07-31 05:25] VITALS: BP 133/79
--- NOTE | 2018-07-31 07:10 | NUR ---
REPORT RECEIVED FROM ELBA MEZA;PT RESTING IN SEMI FOWLERS POSITION;INTRODUCED PT TO SELF AND POC DISCUSSED;RESPIRATIONS EVEN AND UNLABORED ON RA;PT DENIES ANY CURRENT PAIN OR DISCOMFORTS,PAIN SCALE AND REPORTING RE-EDUCATED;IV FLUIDS CONTINUE TO INFUSE WELL TO LEFT FOREARM;CONTACT PRECAUTIONS REMAIN IN PLACE FOR C-DIFF;PT DENIES ANY ADDITIONAL NEEDS AT THIS TIME;FALL PRECAUTIONS IN PLACE WITH CALL LIGHT IN REACH;WILL CONTINUE TO MONITOR
--- NOTE | 2018-07-31 08:00 | NUR ---
PT RESTING IN SEMI FOWLERS POSITION;VS OBTAINED AND ASSESSMENT COMPLETED;PT DENIES ANY CURRENT PAIN OR DISCOMFORTS,PAIN SCALE AND REPORTING RE-EDUCATED;RESPIRATIONS EVEN AND UNLABORED ON RA,CLEAR LUNG SOUNDS NOTED;ABDOMEN SOFT ON PALPATION WITH HYPERACTIVE BOWEL SOUNDS,TENDERNESS NOTED THROUGHOUT.LAST BM 07/31/18;SKIN INTACT;#22G TO LEFT FOREARM INFUSING D51/2 NS @ KVO PER ORDER,SITE APPEARS HEALTHY;PT EDUCATED ON IV SITE EXPIRATION DATE AND REFUSES SITE CHANGE AT THIS TIME;PT AMBULATED TO THE RESTROOM INDEPENDENTLY AND HAD A MODERATE/LOOSE BROWN BM;ALL SAFETY PRECAUTIONS REINFORCED WITH BED IN THE LOWEST POSITION;CONTACT PRECAUTIONS TO REMAIN IN PLACE;CALL LIGHT IN REACH;WILL CONTINUE TO MONITOR
[2018-07-31 08:01] VITALS: BP 131/74
[2018-07-31 08:34] LABS: HEMATOCRIT 38.2 % (37.0-47.0); IMMATURE GRANULOCYTES 0.4 % (0.0-5.0); MEAN CELL VOLUME 87.6 fL CALC (80.0-100.0); MEAN CORPUSCULAR HGB 29.8 pG CALC (26.0-32.0); NEUT# 2.59 thou/uL (2.00-7.15); RED BLOOD COUNT 4.36 mill/uL (4.20-5.60); RED CELL DISTRI WIDTH 11.9 % (11.5-15.5)
[2018-07-31 08:47] LABS: ANION GAP 14 (6-22 (CALC)); BUN 5 mg/dL (8-23); BUN/CREATININE RATIO 9 (12-20 (CALC)); CARBON DIOXIDE 25 mmol/l (22-30); CHLORIDE 107 mmol/l (95-108); CREATININE 0.6 mg/dL (0.5-1.0); GFR > 60 ML/MIN (>=60 (CALC)); GFR FOR AFR.AMER. > 60 ML/MIN (>=60 (CALC)); POTASSIUM 3.9 mmol/l (3.5-5.1); SODIUM 142 mmol/l (137-146)
--- NOTE | 2018-07-31 10:40 | NUR ---
IV SITE TO LEFT FOREARM FOUND LEAKING,SITE REMOVED WITH CATHETER INTACT.
--- NOTE | 2018-07-31 10:57 | NUR ---
Rx called into [facility] for Vancomycin oral suspension 125mg PO four (4) times daily for 5 days. Kaela to process under [facility] Direct Bill.
--- NOTE | 2018-07-31 11:20 | NUR ---
PT RESTING IN SEMI FOWLERS POSITION;RESPIRATIONS EVEN AND UNLABORED ON RA;PT DENIES ANY CURRENT PAIN OR NEEDS;ASSESSMENT REMAINS UNCHANGED AT THIS TIME;CONTACT PLUS PRECAUTIONS IN PLACE;ENCOURAGED PT TO CALL FOR ASSISTANCE IF NEEDED;FALL PRECAUTIONS IN PLACE;CALL LIGHT IN REACH;WILL CONTINUE TO MONITOR
[2018-07-31] MEDS ORDERED: METRONIDAZOL500 MG PO (12:44)
[2018-07-31] MEDS ORDERED: VANCOMYCIN HCL125 MG PO (12:48)
--- NOTE | 2018-07-31 14:15 | NUR ---
ALL DISCHARGE INFORMATION PROVIDED FOR PT AND PRESCRIPTIONS DISCUSSED IN DEPTH;ORAL SUSPENSION VANCO PROVIDED FROM PHARMACY AND PT EDUCATED ON DOSAGE AND USAGE;PT DENIES ANY ADDITIONAL NEEDS AT THIS TIME;WHEELCHAIR TO BE PROVIDED FOR DISCHARGE;AWAITING TRANSPORTATION HOME.
--- NOTE | 2018-07-31 14:56 | NUR ---
Discharge instructions given. Patient verbalizes understanding of same. Discharged in stable condition via Wheelchair to Home with spouse. All belongings sent with pt.
== END 2018-07-31 14:56 | disposition home health service (06) | DRG 373 ==
LOC: MS2 15:13
PROVIDERS: ADMIT Internal Medicine Geriatric Medicine; ATTEND Internal Medicine Geriatric Medicine
DX: A04.71 Enterocolitis due to Clostridium difficile, recurrent (principal); I10 Essential (primary) hypertension; E87.6 Hypokalemia; F41.1 Generalized anxiety disorder; K21.9 Gastro-esophageal reflux disease without esophagitis; M19.90 Unspecified osteoarthritis, unspecified site; K58.9 Irritable bowel syndrome, unspecified
CPT/HCPCS: G0378; G0379

== ENCOUNTER 2021-06-09 09:29 | Emergency (ER) | payer MEDICARE ==
[~2021-06-09 09:29] MED LIST changes: +ACETAMINOPHEN500 MG PO; +METRONIDAZOL500 MG PO; +VANCOMYCIN HCL125 MG PO
[2021-06-09] MEDS ORDERED: NAPROXEN500 MG PO (10:17)
[2021-06-09] MEDS ORDERED: GABAPENTIN100 MG PO (11:14)
[2021-06-09] MEDS ORDERED: XANAX0.5 MG PO (11:16)
[2021-06-09 11:36] VITALS: BP 138/79
== END 2021-06-09 11:36 | disposition home or self-care (01) ==
LOC: ED 09:29
DX: S63.501A Unspecified sprain of right wrist, initial encounter (principal); F41.9 Anxiety disorder, unspecified; F17.200 Nicotine dependence, unspecified, uncomplicated; W18.2XXA Fall in (into) shower or empty bathtub, initial encounter; Y93.E1 Activity, personal bathing and showering; Y92.002 Bathroom of unspecified non-institutional (private) residence as the place of occurrence of the external cause

== ENCOUNTER 2022-05-18 13:21 | Inpatient (IN) | payer MEDICARE ==
[2022-05-18] VITALS (18 sets, daily range): BP systolic 85–144; BP diastolic 50–86
[~2022-05-18] VITALS: Ht 157.5 cm; Wt 52.0 kg
[~2022-05-18 13:21] MED LIST changes: +GABAPENTIN100 MG PO; +NAPROXEN500 MG PO; +XANAX0.5 MG PO
--- NOTE | 2022-05-18 13:25 | NUR ---
PT TO ROOM VIA WC
[2022-05-18 13:51] LABS: HEMATOCRIT 39.7 % (37.0-47.0); HEMOGLOBIN 13.3 g/dl (12.0-16.0); IMMATURE GRANULOCYTES 0.4 % (0.0-5.0); MEAN CELL VOLUME 91.5 fL CALC (80.0-100.0); MEAN CORPUSCULAR HGB 30.6 pG CALC (26.0-32.0); MEAN CORPUSCULAR HGB CONC 33.5 g/dL CAL (32.0-36.0); NEUT# 16.76 thou/uL (2.00-7.15); RED BLOOD COUNT 4.34 mill/uL (4.20-5.60); RED CELL DISTRI WIDTH 11.9 % (11.5-15.5)
[2022-05-18 13:53] LABS: GFR FOR AFR.AMER. > 60 ML/MIN (>=60 (CALC)); GFR OTHER RACES > 60 ML/MIN (>=60 (CALC))
[2022-05-18 14:23] LABS: ALBUMIN 3.8 g/dL (3.2-5.0); ALKALINE PHOSPHATASE 44 u/l (38-126); BUN 7 mg/dL (8-23); BUN/CREATININE RATIO 10 (12-20 (CALC)); CHLORIDE 105 mmol/l (95-108); CREATININE 0.7 mg/dL (0.5-1.0); GFR FOR AFR.AMER. > 60 ML/MIN (>=60 (CALC)); GFR OTHER RACES > 60 ML/MIN (>=60 (CALC)); LIPASE 41 u/l (23-300); POTASSIUM 3.7 mmol/l (3.5-5.1); SGOT/AST 17 u/l (9-36); SODIUM 137 mmol/l (137-146); TOTAL PROTEIN 6.5 g/dL (6.3-8.2)
[2022-05-18 14:24] LABS: ANION GAP 16 (6-22 (CALC)); BILIRUBIN, TOTAL 0.6 mg/dL (0.0-1.4); CARBON DIOXIDE 20 mmol/l (22-30)
--- NOTE | 2022-05-18 14:31 | NUR ---
BEDSIDE COMMODE PLACED IN PTS ROOM. CALL LOW IN REACH. PT AWARE WE NEED STOOL AND URINE SAMPLES. IVF INFUSING
--- NOTE | 2022-05-18 15:03 | NUR ---
PT BROUGHT BACK FROM CT AT THIS TIME D/T IV NOT FLLUSHING WELL PER CASTING MOLDER. THIS RN TO BEDSIDE FOR TROUBLESHOOTING. UNABLE TO GET BLOOD RETURN FROM IV HOWEVER FLUSHES WELL WITH NO RESISTANCE. FLUSHED WITH 30ML SALINE, CASTING MOLDER ATTEMPTED WELL AT BEDSIDE. IV OK TO USE AT THIS TIME. PT BEING TAKEN BACK TO CT AT THIS TIME. RPTS IMPROVED NAUSEA, STATES PAIN IS UNCHANGED AFTER MORPHINE. NAD NOTED
--- NOTE | 2022-05-18 15:39 | NUR ---
PT STRAIGHT CATHED FOR URINE WITH VO FROM DR VELASCO. PT TOLERATED WELL, CLEAR YELLOW URINE NOTED WITH SOME WHITE SEDIMENT. PT RPTS SHE HAS NOT PRODUCED MUCH URINE D/T VOMITING. PT NOTED TO BE HOT TO TOUCH DURING CATH, RECHECK OF TEMP IS NOW 102F TYMPANIC. PT NOTED TO BE SHIVERING WELL. DR VELASCO NOTIFIED.
[2022-05-18 15:46] LABS: URINE BILIRUBIN - DIPSTICK NEGATIVE (NEGATIVE); URINE BLOOD DIPSTICK TRACE-INTACT (NEGATIVE); URINE COLOR YELLOW; URINE GLUCOSE - DIPSTICK NEGATIVE (NEGATIVE); URINE KETONE 40 mg/dL (NEGATIVE); URINE LEUK ESTERASE NEGATIVE (NEGATIVE); URINE PH 5.5 (4.5-8.0); URINE PROTEIN - DIPSTICK NEGATIVE (NEG-TRACE); URINE SPECIFIC GRAVITY 1.015; URINE UROBILINOGEN - DIPSTICK 0.2 E.U./dL (0.2)
[2022-05-18 15:47] LABS: URINE NITRITE - DIPSTICK NEGATIVE (Negative)
--- NOTE | 2022-05-18 16:09 | NUR ---
PT NOTED TO [facility]AT S/P MORPHINE ADMINISTRATION. PT IS A&OX3, PLACED ON 3L VIA NC. NOW SATTING AT 96%. DR VELASCO NOTIFIED. AWAITING CT RESULTS
--- NOTE | 2022-05-18 18:10 | NUR ---
PT ARRIVED VIA WC WITH ER URBANO. PT ABLE TO AMBULATE TO BED. FAMILY MEMEBER AT BEDSIDE TELE MONITOR IN PLACE. CONTINOUS MONITORING PER ED. IV 20RAC INFUSING IVF. ASSESSMENT ALLOWED. BREATHING EVEN AND UNLABORED. PT IS A&OX3. EXPRESSES PAIN IN ABD AREA AND NAUSEA. ABD IS SOFT AND TENDER ON PALPATATION. LUNG SOUNDS ARE DIMINSIHED UPPER/LOWER LOBES. HEART SOUNDS A1 AND S2 HEARD. BOWEL SOUNDS ARE HYPERACTIVE ON ALL 4 QUADRANTS. LAST BM: 05/18/22. RADIAL PEDAL PULSE STRONG. FALL RISK BRACELET IN PLACE AND ALLERGY BAND. FALL/SAFTEY PRECAUTION IN PLACE. CALL LIGHT WITHIN REACH
--- NOTE | 2022-05-18 18:11 | NUR ---
PT TRANSPORTED TO [facility]IA , ON TELE. RPT GIVEN AT THE BEDSIDE TO DEMETRA ACOSTA. ALL QUESTIONS ADDRESSED. PT LEFT IN STABLE CONDITION, A&OX3. IVF INFUSING AT 100ML/HR ON PUMP.
--- NOTE | 2022-05-18 21:13 | NUR ---
PHYSICIAN NOTIFIED OF C/O N/V AND DRY-HEAVES. ORDER FOR PO PHENERGAN RECEIVED AND ADMINISTERED AT THIS TIME. DISCUSSED POC AND NEW ANTIBIOTIC ORDERED PO. WE DISCUSSED GIVING THE MEDICATION TIME TO STOP THE NAUSEA AND THEN SHE AGREED TO TRY AND TAKE IT.
--- NOTE | 2022-05-18 22:06 | NUR ---
Pt reports PO Phenergan is working pretty well. I encouraged that she continue with very small sips only of water. She agreed, but reported feeling very thirsty. I educated her and reassured her that she is getting IV hydration and needs to allow her stomach to rest and only take in what she must to get her medications down, she agreed. She was able to swallow Antibiotic PO pill at this time and is so far holding it down with good results.
[2022-05-19] VITALS (11 sets, daily range): BP systolic 85–135; BP diastolic 46–62
--- NOTE | 2022-05-19 | NUR ---
PT TEMP 100.0, STILL REFUSES TYLENOL DUE TO NAUSEA. DISCUSSED AND ADVISED THAT SHE STOP PO FUID INTAKE, SHE IS DRINKING A LOT SAYING THAT SHE FEELS DRY. I ADVISED THAT SHE IS GETTING HYDRATION VIA IV FLUIDS.
--- NOTE | 2022-05-19 00:06 | NUR ---
COMPENSATOR WORKER REPORTS PT TEMP 100.4 PT REFUSES TYLENOL AT THIS TIME DUE TO HAVING DIFFICULTY HOLDING THINGS DOWN W/NAUSEA AND DRY-HEAVES. BLANKETS REMOVED, SHEET PROVIDED FOR COMFORT. WILL REASSESS IN ONE HOUR FOR RESPONSE.
--- NOTE | 2022-05-19 01:26 | NUR ---
Pt called for assistance to restroom, bsc provided due to pain and weakness. Pt was able to hold her own weight. She was assisted back to bed. Loose stool output at this time. She was medicated for pain.
--- NOTE | 2022-05-19 03:35 | NUR ---
PT IS SITTING ON BSC, LOOSE STOOL OUTPUT. SHE IS VOMITING SMALL AMOUNTS. I SUGGESTED SHE GO NPO FOR THE REST OF THE NIGHT. IV FLUIDS RUNNING AT 100NS.
--- NOTE | 2022-05-19 07:57 | NUR ---
UPON ENTERING ROOM, PT FOUND TO BE "SHAKING". UPON RECENT VS REVIEW PT CURRENTLY HAS A TEMP OF 101.1 AND APPEARED TO BE HYPOTENSIVE; BP RECHECKED WITH RESULT OF 105/48, PT ASYMPTOMATIC. PT A&O X3. PT EDUCATED ON THE NEED FOR TYLENOL, AGREEABLE TO PLAN. BLANKETS REMOVED AT THIS TIME. PT ABLE TO TAKE TYLENOL AND SCHEDULED ABX WITH EASE. CLEAR BREATH SOUNDS UPON AUSCULTATION. O2 SUSTAINING 89-91%, DENIES HOME USE OF OXYGEN. O2 AT 2L APPLIED. HYPOACTIVE BOWEL SOUNDS X4 QUADRANTS. #20G RAC HEALTHY AND PATENT WITH IVF INFUSING PER MAR ORDERS. COMMUNICATION LECTURER IN PLACE. PT ASSISTED TO BSC AND BACK TO BED. CONTACT PERCAUTIONS IN PLACE; PT EDUCATED ON THE NEED FOR THESE. ASSESSMENT COMPLETED. DISCUSSED POC. CALL LIGHT WITHIN REACH.
--- NOTE | 2022-05-19 08:50 | NUR ---
PT SUSTAINING 90-92% RA; O2 AT BEDSIDE PRN.
--- NOTE | 2022-05-19 10:20 | NUR ---
ORDER OBTAINED FOR 20 MG BENTYL PO; PT EDUCATED ON MEDICATION AND ITS USE. TOLERATED PO MEDICATION WELL. CALL LIGHT WITHIN REACH.
--- NOTE | 2022-05-19 11:50 | NUR ---
DR URBAN AT BEDSIDE FOR ASSESSMENT AND DISCUSSION OF POC
[2022-05-19 12:09] LABS: HEMATOCRIT 34.8 % (37.0-47.0); HEMOGLOBIN 11.4 g/dl (12.0-16.0); IMMATURE GRANULOCYTES 0.7 % (0.0-5.0); MEAN CORPUSCULAR HGB 30.5 pG CALC (26.0-32.0); MEAN CORPUSCULAR HGB CONC 32.8 g/dL CAL (32.0-36.0); NEUT# 10.2 thou/uL (2.00-7.15); RED BLOOD COUNT 3.74 mill/uL (4.20-5.60); RED CELL DISTRI WIDTH 12.3 % (11.5-15.5)
[2022-05-19 12:15] LABS: ANION GAP 12 (6-22 (CALC)); BUN 6 mg/dL (8-23); BUN/CREATININE RATIO 10 (12-20 (CALC)); CARBON DIOXIDE 21 mmol/l (22-30); CHLORIDE 108 mmol/l (95-108); CREATININE 0.7 mg/dL (0.5-1.0); GFR FOR AFR.AMER. > 60 ML/MIN (>=60 (CALC)); GFR OTHER RACES > 60 ML/MIN (>=60 (CALC)); MAGNESIUM 1.5 mg/dL (1.6-2.3); POTASSIUM 3.5 mmol/l (3.5-5.1); SODIUM 138 mmol/l (137-146)
--- NOTE | 2022-05-19 12:37 | NUR ---
PT SITTING ON THE SIDE OF THE BED. C/O OF CRAMPING ABD PAIN RATING 10/10. REGLAN AND MORPHINE GIVEN. PT TOLERATED WELL. CALL LIGHT WITHIN REACH.
--- NOTE | 2022-05-19 14:47 | NUR ---
RADIOLOGY AT BEDSIDE FOR ABD XRAY
--- NOTE | 2022-05-19 16:06 | NUR ---
PT RESTING AT THIS TIME. NO DISTRESS NOTED. CALL LIGHT WITHIN REACH.
--- NOTE | 2022-05-19 20:45 | NUR ---
PATIENT RESTING IN BED. AT BEDSIDE. ASSESSMENT COMPLETED AT THIS TIME. CALL LIGT IN REACH AND BED IN LOWEST POSITION. CONTINUE TO MONITOR.
[2022-05-20] VITALS (9 sets, daily range): BP systolic 102–144; BP diastolic 48–72
--- NOTE | 2022-05-20 00:10 | NUR ---
PATIEND IN BED RESTING WITH EYES CLOSED BREATHING EVEN AND UNLABORED. CALL LIGHT IN REACH AND BED IN LOWEST POSITION. CONTINUE TO MONITOR.
--- NOTE | 2022-05-20 04:10 | NUR ---
PATIENT IN BED RESTING WITH EYES CLOSED BREATHING EVEN AND UNLABORED. NO S/S OF DISTRESS NOTED. CALL LIGHT IN REACH AND BED IN LOWEST POSITION.
[2022-05-20 05:36] LABS: IMMATURE GRANULOCYTES 0.7 % (0.0-5.0); MEAN CELL VOLUME 91.5 fL CALC (80.0-100.0); MEAN CORPUSCULAR HGB 30.3 pG CALC (26.0-32.0); MEAN CORPUSCULAR HGB CONC 33.1 g/dL CAL (32.0-36.0); NEUT# 8.08 thou/uL (2.00-7.15); RED BLOOD COUNT 3.07 mill/uL (4.20-5.60); RED CELL DISTRI WIDTH 12.5 % (11.5-15.5)
[2022-05-20 05:52] LABS: ANION GAP 12 (6-22 (CALC)); BUN 4 mg/dL (8-23); BUN/CREATININE RATIO 8 (12-20 (CALC)); CARBON DIOXIDE 17 mmol/l (22-30); CHLORIDE 111 mmol/l (95-108); CREATININE 0.5 mg/dL (0.5-1.0); GFR FOR AFR.AMER. > 60 ML/MIN (>=60 (CALC)); GFR OTHER RACES > 60 ML/MIN (>=60 (CALC)); POTASSIUM 3.2 mmol/l (3.5-5.1); SODIUM 138 mmol/l (137-146)
[2022-05-20 05:53] LABS: HEMATOCRIT 28.1 % (37.0-47.0); HEMOGLOBIN 9.3 g/dl (12.0-16.0)
--- NOTE | 2022-05-20 08:09 | NUR ---
RESTING QUIETLY IN ROOM, STATES FEELING A LITTLE BETTER THIS MORNING, NOC/O OF PAIN OR NAUSEA CURRENTLY, K 3.2, IV PATENT AND INFUSING.
[2022-05-20 11:57] LABS: URINE BLOOD DIPSTICK LARGE (NEGATIVE); URINE GLUCOSE - DIPSTICK NEGATIVE (NEGATIVE); URINE KETONE >=80 mg/dL (NEGATIVE); URINE LEUK ESTERASE NEGATIVE (NEGATIVE); URINE PROTEIN - DIPSTICK TRACE mg/dL (NEG-TRACE); URINE SPECIFIC GRAVITY >=1.030; URINE UROBILINOGEN - DIPSTICK 0.2 E.U./dL (0.2)
--- NOTE | 2022-05-20 12:20 | NUR ---
RESTING QUIETLY IN ROOM, C/O PAIN, MEDICATED WITH RELIEF, NO OTHER SIGNS OR SYMPTOMS OF DISTRESS NOTED OR VOICED.
[2022-05-20 12:25] LABS: URINE BILIRUBIN - DIPSTICK SMALL (NEGATIVE); URINE COLOR DK. YELLOW; URINE EPITHELIAL CELLS FEW EPI/hpf (0-FEW); URINE MUCUS FEW hpf (NONE-FEW); URINE NITRITE - DIPSTICK NEGATIVE (Negative)
--- NOTE | 2022-05-20 16:13 | NUR ---
RESTING QUIETLY IN BED, NO SIGNS OR SYMPTOMS OF DISTRESS NOTED OR VOICED.
--- NOTE | 2022-05-20 19:53 | NUR ---
PT RESTING IN BED NO SIGNS OF DISTRESS NOTED, RESP EVEN AND UNLABORED. PT GUARDING ABD BUT STATES HER PAIN HAS DECREASED TO 5/10.PT STATES "IT WILL GO AWAY SOON, THE CRAMPING COMES AND GOES." IVF INFUSING, NO N/V AT THIS TIME. AT BEDSIDE. DISCUSSED POC, NO EDEMA SKIN INTACT. ASSESSMENT COMPLETED, CALL LIGHT IN REACH,CONTINUE TO MONITOR.
[2022-05-21] VITALS (8 sets, daily range): BP systolic 117–158; BP diastolic 58–71
--- NOTE | 2022-05-21 | NUR ---
PT RESTING IN BED WITH EYES CLOSED, NO SIGNS OF DISTRESS NOTED, RESP EVEN AND UNLABORED. CALL LIGHT IN REACH,CONTINUE TO MONITOR.
[2022-05-21 05:56] LABS: HEMATOCRIT 32.9 % (37.0-47.0); HEMOGLOBIN 11.1 g/dl (12.0-16.0); IMMATURE GRANULOCYTES 0.2 % (0.0-5.0); MEAN CELL VOLUME 90.9 fL CALC (80.0-100.0); MEAN CORPUSCULAR HGB 30.7 pG CALC (26.0-32.0); MEAN CORPUSCULAR HGB CONC 33.7 g/dL CAL (32.0-36.0); NEUT# 5.85 thou/uL (2.00-7.15); RED BLOOD COUNT 3.62 mill/uL (4.20-5.60); RED CELL DISTRI WIDTH 12.5 % (11.5-15.5)
--- NOTE | 2022-05-21 06:00 | NUR ---
PT RETURNED FROM [facility], C/O PAIN 05/06, PT MEDICATED PER DEC. CALL LIGHT IN REACH,CONTINUE TO MONITOR.
[2022-05-21 06:04] LABS: MAGNESIUM 1.6 mg/dL (1.6-2.3)
[2022-05-21 06:10] LABS: ALKALINE PHOSPHATASE 45 u/l (38-126); ANION GAP 13 (6-22 (CALC)); BILIRUBIN, TOTAL 0.4 mg/dL (0.0-1.4); BUN < 2 mg/dL (8-23); CARBON DIOXIDE 17 mmol/l (22-30); CHLORIDE 111 mmol/l (95-108); CREATININE 0.5 mg/dL (0.5-1.0); GFR FOR AFR.AMER. > 60 ML/MIN (>=60 (CALC)); GFR OTHER RACES > 60 ML/MIN (>=60 (CALC)); POTASSIUM 3.7 mmol/l (3.5-5.1); SGOT/AST 17 u/l (9-36); SODIUM 138 mmol/l (137-146)
[2022-05-21 06:11] LABS: ALBUMIN 2.8 g/dL (3.2-5.0); TOTAL PROTEIN 5.1 g/dL (6.3-8.2)
--- NOTE | 2022-05-21 07:00 | NUR ---
REPOPRT RECIEVED FROM ACCOUNT SERVICES ANALYST NURSE PT RESTING WITH O2 IN PLACE. STATES NO NAUSEA AT THIS TIME. BREATHING EVEN AND UNLABORED. IVF INFUSING PER EMAR. FALL/SAFTEY PRECAUTION IN PLACE. CALL LIGHT WITHIN REACH
--- NOTE | 2022-05-21 08:38 | NUR ---
PT AWAKE AND A&OX3. WITH O2 IN PLACE 2L VIA NC. STATING 96-98. TITRATING DOWN TO 1L STATING BETWEEN 93-94. O2 TAKEN OFF STATING 89-92. PT BACK TO 1L VIA NC. ASSESSMENT ALLOWED. BREATHING EVEN AND UNLABORED. BOWEL SOUDNS ACTIVE X4. ABD SOFT WITH TENDERNESS ON PALPATATION. PT STATES NO FEELING OF NAUSEA/VOMITING. STATES NO PAIN. IV 22 LFA INFUSIGN IVF PER EMAR. TELE MONITOR IN PLACE. CONTINOUS MONITORING PER ED. FALL/SAFTEY PRECAUTION IN PLACE. CALL LIGHT WITHIN REACH
--- NOTE | 2022-05-21 14:31 | NUR ---
PT COMPLAINS OF ABD PAIN OF 06/06. MEDICATED SEE EMAR. STATES NO OTHER NEEDS AT THIS TIME. FAMILY MEMEBER AT BEDSIDE. FALL/SAFTEY PRECAUTION IN PLACE. CALL LIGHT WITHIN REACH
--- NOTE | 2022-05-21 20:00 | NUR ---
PATIENT AWAKE SITTING UP AT BEDSIDE USED BEDSIDE COMMODE. DENIES PAIN AT THIS TIME. VISITING IN ROOM. PLAN OF CARE DISCUSSED WITH PATIENT AND . PATIENT USING OXYGEN AT 1 LPM NC RESPIRATIONS EVEN AND UNLABORED.
[2022-05-22] VITALS (7 sets, daily range): BP systolic 134–167; BP diastolic 63–79
--- NOTE | 2022-05-22 | NUR ---
PATIENT AWAKE ALERT COMPLAIN OF LOWER ABDOMEN CRAMPING PAIN. MEDICATED FOR PAIN RELIEF. WILL CONTINUE TO MONITOR
[2022-05-22 05:38] LABS: HEMATOCRIT 31.4 % (37.0-47.0); HEMOGLOBIN 10.6 g/dl (12.0-16.0); MEAN CELL VOLUME 89.5 fL CALC (80.0-100.0); MEAN CORPUSCULAR HGB 30.2 pG CALC (26.0-32.0); MEAN CORPUSCULAR HGB CONC 33.8 g/dL CAL (32.0-36.0); RED BLOOD COUNT 3.51 mill/uL (4.20-5.60); RED CELL DISTRI WIDTH 12.1 % (11.5-15.5)
[2022-05-22 06:09] LABS: ALBUMIN 2.5 g/dL (3.2-5.0); ALKALINE PHOSPHATASE 35 u/l (38-126); ANION GAP 12 (6-22 (CALC)); BILIRUBIN, TOTAL 0.3 mg/dL (0.0-1.4); BUN < 2 mg/dL (8-23); CHLORIDE 107 mmol/l (95-108); CREATININE 0.4 mg/dL (0.5-1.0); GFR FOR AFR.AMER. > 60 ML/MIN (>=60 (CALC)); GFR OTHER RACES > 60 ML/MIN (>=60 (CALC)); MAGNESIUM 1.5 mg/dL (1.6-2.3); POTASSIUM 3.2 mmol/l (3.5-5.1); SGOT/AST 14 u/l (9-36); SODIUM 137 mmol/l (137-146); TOTAL PROTEIN 4.7 g/dL (6.3-8.2)
[2022-05-22 06:10] LABS: CARBON DIOXIDE 21 mmol/l (22-30)
--- NOTE | 2022-05-22 07:00 | NUR ---
REPORT RECEIEVED FROM REFRACTORY MANAGER SHFT PT RESTING WATCHING TV. STATES FEELING BETTER. IVF IN FUSING PER EMAR. TELE MONITOR IN PLACE. CALL LIGHT WITHIN REACH
--- NOTE | 2022-05-22 09:00 | NUR ---
ASSESSMENT ALLOWED. ABD SOFT/ TENDER.STATES PAIN IN ABD. BOWEL SOUNDS HYPERACTIVE. IV 22G LFA, FLUSHED. TELE IN PLACE CONTINOUS MONITORING PER ED. FALL/SAFTEY PRECAUTION IN PLACE. CALL LIGHT WITHIN REACH
--- NOTE | 2022-05-22 10:00 | NUR ---
IV IN FITLRATED. IV REMOVED. WARM COMPRESS PROOVIDED AND INTSTRUCTED TO ELEVATE LEFT ARM. PT INDICATED UNDERSTANDING. FALL/SAFTEY PRECAUTIONIN PLACE. CALL LIGHT WITHIN REACH
[2022-05-22] MEDS ORDERED: ALENDRONATE SOD70 MG PO (10:09)
[2022-05-22] MEDS ORDERED: CRESTOR5 MG PO (10:10)
--- NOTE | 2022-05-22 10:10 | NUR ---
NEW IV ESTABLISHED. 22 FARZANA, FLUSHED.
[2022-05-22] MEDS ORDERED: NEURONTIN100 MG PO (10:11)
[2022-05-22] MEDS ORDERED: SERTRALINE50 MG PO (10:12)
[2022-05-22] MEDS ORDERED: PROTONIX40 M2 PO (10:13)
[2022-05-22] MEDS ORDERED: DIPHEN/ATROP2.5 MG PO (10:13)
--- NOTE | 2022-05-22 10:34 | NUR ---
PT COMPLAINING OF NAUSEA. MEDICATED SEE EMAR. STATES ABD PAIN 06/06 MEDICATED SEE EMAR FALL/SAFTEY PRECAUTION IN PLACE. CALL LIGHT WITHIN REACH
--- NOTE | 2022-05-22 13:02 | NUR ---
CALLED DR. HOLLAND OFFICE SPOKE TO HELEN GAVE INFORMATION STATED SHE WOULD CALL DR. HOLLAND TO LET HIM KNOW ABOUT THE CONSULTATION.
--- NOTE | 2022-05-22 16:51 | NUR ---
PT COMPLAINS OF PAIN. 06/06 AND NAUSEA MEDICATED SEE EMAR.
--- NOTE | 2022-05-22 20:00 | NUR ---
UP AD RICH IN ROOM FOR PM CARE TOLERATES WELL. AFFECT GOOD. ON ROOM AIR. DENIES PAIN OR DISCOMFORT. RESPIRATIONS EVEN AND UNLABORED. MILD REDNESS NOTED ON LOWER BACK FROM SCRATCHING ITCHY AREA. ENGINEERING PSYCHOLOGIST SHOWS SINUS RHYTHM. VERY PLEASANT AND COOPERATIVE.
--- NOTE | 2022-05-22 21:38 | NUR ---
AWAKE ALERT AND ORIENTED X 4 PREPARIN FOR SLEEP MEDICATED WITH XANAX 0.5 MG FOR REST. PLACED ON OXYGEN AT 1 LITER PER MIN.
--- NOTE | 2022-05-23 02:40 | NUR ---
RESTING QUIETLY IN BED NO ACUTE DISTRESS NOTED. RESPIRATIONS EVEN AND UNLABORED
[2022-05-23 03:48] VITALS: BP 148/70
--- NOTE | 2022-05-23 05:15 | NUR ---
PATIENT COMPLAIN OF NAUSEA. SITTINHG AT BEDSIDE. RESPIRATIONS EVEN AND UNLABORED. MEDICATED WITH PHENERGAN 25 MG PO FOR RELIEF OF NAUSEA
[2022-05-23 05:18] LABS: HEMATOCRIT 32.5 % (37.0-47.0); HEMOGLOBIN 10.9 g/dl (12.0-16.0); MEAN CELL VOLUME 90.3 fL CALC (80.0-100.0); MEAN CORPUSCULAR HGB 30.3 pG CALC (26.0-32.0); MEAN CORPUSCULAR HGB CONC 33.5 g/dL CAL (32.0-36.0); RED BLOOD COUNT 3.6 mill/uL (4.20-5.60); RED CELL DISTRI WIDTH 12.1 % (11.5-15.5)
[2022-05-23 05:40] LABS: ANION GAP 11 (6-22 (CALC)); BUN < 2 mg/dL (8-23); CARBON DIOXIDE 21 mmol/l (22-30); CHLORIDE 105 mmol/l (95-108); CREATININE 0.4 mg/dL (0.5-1.0); GFR FOR AFR.AMER. > 60 ML/MIN (>=60 (CALC)); GFR OTHER RACES > 60 ML/MIN (>=60 (CALC)); POTASSIUM 3.4 mmol/l (3.5-5.1); SODIUM 135 mmol/l (137-146)
--- NOTE | 2022-05-23 06:40 | NUR ---
RECEIVED REPORT FROM ELBA LOVETT.
[2022-05-23 06:53] VITALS: BP 148/68
--- NOTE | 2022-05-23 08:25 | NUR ---
PT ASSISTED TO BATHROOM; A&O X3. EVEN AND UNLABORED RESPIRATIONS; CLEAR LUNG SOUNDS UPON AUSCULTATION. TELEMETRY IN PLACE WITH LAST READING SR-86. IV SITE HEALTHY AND PATENT. ACTIVE BOWEL SOUNDS X4 QUADRANTS. PT C/O ABDOMINAL PAIN LEVEL 8/10; ADMINISTERED PAIN MEDICATION PER EMAR. SAFETY PRECAUTIONS IN PLACE WITH CALL LIGHT IN REACH.
--- NOTE | 2022-05-23 08:45 | NUR ---
RECEIVED REPORT FROM ELBA LOVETT.
--- NOTE | 2022-05-23 11:46 | NUR ---
IV PUMP GOING ON; INFUSION COMPLETE, HANGING NEW BAG WHEN LIFE SCIENCES INSTRUCTOR NOTICED IV CATHETER DISLODGED, CATH INTACT. PT WILL NEED PICC LINE PER MD'S ORDER. SAFETY PRECAUTIONS IN PLACE WITH CALL LIGHT IN REACH.
--- NOTE | 2022-05-23 12:10 | NUR ---
PT IN BED WATCHING TV. NO DISTRESS OR PAIN NOTED. PT ASSISTED TO BATHROOM. SAFETY PRECAUTIONS IN PLACE WITH CALL LIGHT IN REACH.
--- NOTE | 2022-05-23 12:18 | NUR ---
UNABLE TO PLACE PIV AFTER MULTIPLE ATTEMPTS AND SEVERAL DIFFERENT NURSES. NEW ORDERS GIVEN FOR PICC FROM DR. FERRARI.
--- NOTE | 2022-05-23 12:33 | NUR ---
PT TAKEN TO RADIOLOGY BY AIDE FOR PICC PLACEMENT AT THIS TIME.
--- NOTE | 2022-05-23 13:25 | NUR ---
PT IS BACK FROM RADIOLOGY.
[2022-05-23 14:46] VITALS: BP 140/66
[2022-05-23 15:04] VITALS: BP 139/64
--- NOTE | 2022-05-23 16:30 | NUR ---
PT IN BED, LOOKING AT PHONE. NO DISTRESS NOTED. PT STATES PAIN MEDICATION IS HELPING, PAIN LEVEL 4/10. SAFETY PRECAUTIONS IN PLACE WITH CALL LIGHT IN REACH.
[2022-05-23 19:06] VITALS: BP 129/70
--- NOTE | 2022-05-23 19:10 | NUR ---
REPORT RECEIVED FROM Cammy MASCORRO LPN.
--- NOTE | 2022-05-23 20:00 | NUR ---
PATIENT RESTING COMOFTORTABLY. AT BEDSIDE. ASSEMENT COMPLETED A THIS TIME. PLAN OF CARE REVIEWED WITH PATIENT AND . CALL LIGHT AND BEDSIDE TABLE WITHIN REACH.
[2022-05-23 23:21] VITALS: BP 114/45
[2022-05-24] VITALS (8 sets, daily range): BP systolic 114–178; BP diastolic 45–86
--- NOTE | 2022-05-24 00:45 | NUR ---
PATIENT ASSISTED TO THE BATHROOM AT THIS TIME. PROVIDED WITH LINERS AND DISPOSABLE UNDERWEAR. SMALL AMOUNT OF LOOSE STOOL NOTED. PATIENT ASSITED BACK TO BE. CALL LIGHT AND BEDSIDE TABLE WITHIN REACH.
--- NOTE | 2022-05-24 04:00 | NUR ---
PATIENT ASSISTED TO THE BATHROOM AT THIS TIME. ADVISED PATIENT TO CALL WHEN READY TO RETURN TO BED. BATHROOM LIGHT PLACED WITHIN REACH.
--- NOTE | 2022-05-24 06:40 | NUR ---
RECEIVED REPORT FROM ELBA BLOUNT.
[2022-05-24 07:49] LABS: HEMATOCRIT 38.3 % (37.0-47.0); HEMOGLOBIN 12.8 g/dl (12.0-16.0); MEAN CELL VOLUME 89.7 fL CALC (80.0-100.0); MEAN CORPUSCULAR HGB CONC 33.4 g/dL CAL (32.0-36.0); RED BLOOD COUNT 4.27 mill/uL (4.20-5.60); RED CELL DISTRI WIDTH 12.4 % (11.5-15.5)
[2022-05-24 08:07] LABS: ALKALINE PHOSPHATASE 41 u/l (38-126); ANION GAP 13 (6-22 (CALC)); BILIRUBIN, TOTAL 0.3 mg/dL (0.0-1.4); BUN < 2 mg/dL (8-23); CARBON DIOXIDE 24 mmol/l (22-30); CHLORIDE 107 mmol/l (95-108); CREATININE 0.4 mg/dL (0.5-1.0); GFR FOR AFR.AMER. > 60 ML/MIN (>=60 (CALC)); GFR OTHER RACES > 60 ML/MIN (>=60 (CALC)); POTASSIUM 3.5 mmol/l (3.5-5.1); SGOT/AST 24 u/l (9-36); SODIUM 140 mmol/l (137-146)
[2022-05-24 08:08] LABS: ALBUMIN 3.2 g/dL (3.2-5.0); MAGNESIUM 1.4 mg/dL (1.6-2.3); TOTAL PROTEIN 5.7 g/dL (6.3-8.2)
--- NOTE | 2022-05-24 08:25 | NUR ---
PT IN BED: A&O X3. EVEN AND UNLABORED RESPIRATIONS; CLEAR LUNG SOUNDS UPON AUSCULTATION. TELEMETRY IN PLACE. PICC LINE ON RIGHT UPPER ARM FLUSHED; HEALTHY AND PATENT. ACTIVE BOWEL SOUNDS X4 QUADRANTS. PT C/O NAUSEA AND ABDOMINAL PAIN, LEVEL 6/10: NAUSEA AND PAIN MED ADMINISTERED. SAFETY PRECAUTIONS IN PLACE WITH CALL LIGHT IN REACH.
--- NOTE | 2022-05-24 13:00 | NUR ---
PT ASSISTED TO BATHROOM: PT BACK IN BED. NO DISTRESS NOTED. PICC LINE FLUSHED: HANGING SCHEDULED ANTIBIOTIC. SAFETY PRECAUTIONS IN PLACE WITH CALL LIGHT IN REACH.
--- NOTE | 2022-05-24 16:52 | NUR ---
PT IN BED LOOKING AT CELLPHONE. ADMINISTERED SCHEDULED ANTIBIOTIC. NO DISTRESS NOTED. PT C/O HEADACHE, TEMP 99.4, PT STATES: "I DON'T WANT ANYTHING FOR THE HEADACHE RIGHT NOW, BECAUSE TYLENOL MIGHT CAUSE ME AN UPSET STOMACH, AND I'VE BEEN UP TO THE BATHROOM SEVERAL TIMES ALREADY." PICC LINE HEALTHY AND PATENT INFUSING FLUIDS PER EMAR. SAFETY PRECAUTIONS IN PLACE WITH CALL LIGHT IN REACH.
--- NOTE | 2022-05-24 19:00 | NUR ---
REPORT RECEIVED FROM Rachelle MASCORRO LPN AT BEDSIDE. CARE OF PT ASSUMED AT THIS TIME. PT IS COMFORTABLE WITH NO APPARENT DISTRESS. DENIES NEEDS AT THIS TIME. CALL LOW WITHIN REACH, AGREES TO CALL PRN.
--- NOTE | 2022-05-24 19:40 | NUR ---
PT RECEIVES VISITOR TO BEDSIDE.
[2022-05-25] VITALS (9 sets, daily range): BP systolic 131–142; BP diastolic 68–76
--- NOTE | 2022-05-25 | NUR ---
PT APPEARS TO BE SLEEPING COMFORTABLY, LAYING IN BED WITH EYES CLOSED, RESPIRATIONS REGULAR AND UNLABORED. NO APPARENT DISTRESS. CALL LOW REMAINS WITHIN REACH.
--- NOTE | 2022-05-25 04:15 | NUR ---
LABS DRAWN VIA PICC LINE.
[2022-05-25 05:46] LABS: MEAN CELL VOLUME 90.8 fL CALC (80.0-100.0); MEAN CORPUSCULAR HGB 30.1 pG CALC (26.0-32.0); MEAN CORPUSCULAR HGB CONC 33.1 g/dL CAL (32.0-36.0); RED BLOOD COUNT 3.49 mill/uL (4.20-5.60); RED CELL DISTRI WIDTH 12.6 % (11.5-15.5)
[2022-05-25 06:07] LABS: HEMATOCRIT 31.7 % (37.0-47.0); HEMOGLOBIN 10.5 g/dl (12.0-16.0)
[2022-05-25 06:13] LABS: ALBUMIN 2.6 g/dL (3.2-5.0); ALKALINE PHOSPHATASE 31 u/l (38-126); ANION GAP 5 (6-22 (CALC)); BILIRUBIN, TOTAL 0.2 mg/dL (0.0-1.4); BUN < 2 mg/dL (8-23); CARBON DIOXIDE 27 mmol/l (22-30); CHLORIDE 109 mmol/l (95-108); CREATININE 0.5 mg/dL (0.5-1.0); GFR FOR AFR.AMER. > 60 ML/MIN (>=60 (CALC)); GFR OTHER RACES > 60 ML/MIN (>=60 (CALC)); MAGNESIUM 1.4 mg/dL (1.6-2.3); SGOT/AST 32 u/l (9-36); SODIUM 138 mmol/l (137-146); TOTAL PROTEIN 4.9 g/dL (6.3-8.2)
[2022-05-25 06:20] LABS: POTASSIUM 2.7 mmol/l (3.5-5.1)
--- NOTE | 2022-05-25 07:00 | NUR ---
REPORT FROM ALEA ARREOLA. ASSUMED PT CARE.
--- NOTE | 2022-05-25 07:59 | NUR ---
PT OOB TO SHOWER, PT C/O NAUSEA AND STOMACH CRAMPS AT THIS TIME. MEDICATED WITH PRN REGLAN. WATERPROOF BARRIER APPLIED TO FARZANA TO PROTECT PICC LINE. PT INSTRUCTED TO CALL FOR ASSISTANCE. CLEAN LINENS PROVIDED BY EMA MCCRAY. PT DENIES ANY OTHER CURRENT WANTS OR NEEDS. CALL LIGHT WITHIN REACH. WILL CONTINUE TO MONITOR.
--- NOTE | 2022-05-25 11:20 | NUR ---
PT RESTING IN BED. NO APPARENT DISTRESS NOTED. PT DENIES ANY PAIN OR DISCOMFORT. NO CURRENT WANTS OR NEEDS. CALL LIGHT WITHIN REACH. WILL CONTINUE TO MONITOR.
--- NOTE | 2022-05-25 13:55 | NUR ---
PT SITTING UP IN BED. AT BEDSIDE. PT DRINKING FROSTY FROM [employer]. NO APPARENT DISTRESS NOTED. PT DENIES ANY PAIN OR DISCOMFORT AT THIS TIME. CALL LIGHT WITHIN REACH. WILL CONTINUE TO MONITOR.
--- NOTE | 2022-05-25 16:39 | NUR ---
PT C/O HEADACHE AND STOMACH CRAMPING. MEDICATED WITH PRN PHENERGAN AND APAP AT THIS TIME. PT DENIES ANY OTHER CURRENT WANTS OR NEEDS. CALL LIGHT WITHIN REACH. WILL CONTINUE TO MONITOR.
--- NOTE | 2022-05-25 19:15 | NUR ---
LYING IN BED RIGHT SIDE POSITION. COMPLAIN OF MILD GENERALIZED ABDOMEN DISCOMFORT DURING ASSESSMENT. DENIES NAUSEA. PLAN OF CARE DISCUSSED WITH PATIENT.
--- NOTE | 2022-05-25 20:10 | NUR ---
DR. FLORES INFECTIOUS DISEASE WITH TELE-MEDICINE CONFERENCE IN PROGRESS. PATIENT AWAKE ALERT AND ORIENTED X 4. PLAN FOR POSSIBLE DISCHARGE HOME THIS WEEKEND.
--- NOTE | 2022-05-25 22:17 | NUR ---
RESTING QUIETLY IN BED RESPIRATIONS EVEN AND UNLABORED ON ROOM AIR. WILL CONTINUE TO MONITOR.
--- NOTE | 2022-05-25 23:56 | NUR ---
RESTING QUIETLY IN BED WITH EYES CLOSED EASILY AROUSABLE FOR VITAL SIGNS. RESPIRATIONS EVEN AND UNLABORED.
[2022-05-26] VITALS: BP 147/60
[2022-05-26 00:07] VITALS: BP 147/60
--- NOTE | 2022-05-26 02:16 | NUR ---
UP TO BEDSIDE COMMODE TOLERATES WELL. NO SOB NOTED ATTORNEY AT LAW SHOWS SINUS RYTHM.
[2022-05-26 03:46] VITALS: BP 150/74
--- NOTE | 2022-05-26 03:59 | NUR ---
RESTING QUIETLY EASILY AROUSABLE FOR ASSESSMENT. DENIES PAIN OR DISCOMFORT. PO FLUIDS OFFERED TOLERATED WELL. BLOOD DRAWN FROM SINGLE-LUMEN PICC AT RIGHT UPPER ARM PLACED AND IN TUBES SENT TO LAB. 10CC SALINE USED TO FLUSH PICC LINE AFTER LAB BLOOD DRAW.
[2022-05-26 04:00] VITALS: BP 150/74
[2022-05-26 05:03] LABS: HEMATOCRIT 34.7 % (37.0-47.0); HEMOGLOBIN 11.4 g/dl (12.0-16.0); MEAN CORPUSCULAR HGB 30.2 pG CALC (26.0-32.0); MEAN CORPUSCULAR HGB CONC 32.9 g/dL CAL (32.0-36.0); RED BLOOD COUNT 3.77 mill/uL (4.20-5.60); RED CELL DISTRI WIDTH 12.7 % (11.5-15.5)
[2022-05-26 05:33] LABS: ALBUMIN 2.7 g/dL (3.2-5.0); ALKALINE PHOSPHATASE 33 u/l (38-126); ANION GAP 7 (6-22 (CALC)); BILIRUBIN, TOTAL 0.2 mg/dL (0.0-1.4); BUN 5 mg/dL (8-23); BUN/CREATININE RATIO 8 (12-20 (CALC)); CARBON DIOXIDE 25 mmol/l (22-30); CHLORIDE 112 mmol/l (95-108); CREATININE 0.6 mg/dL (0.5-1.0); GFR FOR AFR.AMER. > 60 ML/MIN (>=60 (CALC)); GFR OTHER RACES > 60 ML/MIN (>=60 (CALC)); POTASSIUM 3.6 mmol/l (3.5-5.1); SGOT/AST 51 u/l (9-36); SODIUM 140 mmol/l (137-146)
--- NOTE | 2022-05-26 06:01 | NUR ---
AWAKE ALERT AND ORIENTED X4 DENIES PAIN OR DISCOMFORT. AFFECT GOOD PLEASANT AND COOPERATIVE.
--- NOTE | 2022-05-26 07:00 | NUR ---
report recieved from group burner machinemachinist 2nd shift. pt sleeping. respirations even and unlabored. no distress noted. fall/saftey precaution in place. call light within reach
[2022-05-26 07:06] VITALS: BP 114/93
--- NOTE | 2022-05-26 07:48 | NUR ---
PT AWAKE IN BED UPON ENTERING ROOM. STATES NO NV/PAIN BUT COMPLAINS OF MULTIPLE BOWEL MOVEMENTS. ASSESSMENT ALLOWED. BREATHING EVENA ND UNLABORED. LUNG SOUNDS CLEAR. TELE MONITOR IN PLACE, CONTINOUS MONITORING PER ED. BOWEL SOUNDS ACTIVE X4. IV PICC LINE IN FARZANA FLUSHED, ABLE TO GET BLOOD RETURN. FALL/SAFTEY PRECAUTION IN PLACE. CALL LIGHT WITHIN REACH.
[2022-05-26 10:13] VITALS: BP 122/67
[2022-05-26] MEDS ORDERED: PEPCID20 MG PO (13:22)
[2022-05-26] MEDS ORDERED: FLORASTOR250 M1 PO (13:22)
[2022-05-26] MEDS ORDERED: FIRVANQ25 MG/ML PO (13:23)
--- NOTE | 2022-05-26 13:25 | NUR ---
PT RESTING IN BED. BREAHTING EVEN AND UNLABORED IVF INFUSING PER EMAR. PICC LINE SINGLE LUMEN IN PLACE. CALL LIGHT WITHIN REACH.
[2022-05-26] MEDS ORDERED: TRAMADOL HCL50 MG PO (13:30)
--- NOTE | 2022-05-26 14:51 | NUR ---
WAS INFORMED BY PTS NURSE THAT [employer] WAS NOT COVERED BY INSURANCE. CALLED [facility], SPOKE WITH PHARMACIST, [employer] IS NON FORMULARY WITH PTS INSURANCE SO SHE CHANGED IT TO [facility] WITH SAME DOSE INSTRUCTIONS. [facility] REQUIRE A PA THRU THE INSURANCE. GLADIS MCCRARY
--- NOTE | 2022-05-26 16:32 | NUR ---
Discharge instructions given. Patient verbalizes understanding of same. Discharged in stable condition via Wheelchair to Home with staff. All belongings sent with pt.
== END 2022-05-26 16:32 | DRG 373 ==
LOC: ED 13:21 → ED-I 16:00 → ED 17:21 → MS2 17:22
PROVIDERS: Family Medicine; Internal Medicine; ADMIT Internal Medicine; ATTEND Internal Medicine
PROC: 02HV33Z Insertion of Infusion Device into Superior Vena Cava, Percutaneous Approach (ICD-10-PCS; principal; 2022-05-23)
PROC: B518ZZA Fluoroscopy of Superior Vena Cava, Guidance (ICD-10-PCS; 2022-05-23)
DX: A04.71 Enterocolitis due to Clostridium difficile, recurrent (principal); D64.9 Anemia, unspecified; K64.9 Unspecified hemorrhoids; E87.6 Hypokalemia; E83.42 Hypomagnesemia; F41.9 Anxiety disorder, unspecified; F17.200 Nicotine dependence, unspecified, uncomplicated; Z86.19 Personal history of other infectious and parasitic diseases; Z20.822 Contact with and (suspected) exposure to COVID-19
CPT/HCPCS: J1650; J3475; Q3014; Q9967

== ENCOUNTER 2022-11-19 06:38 | Day surgery (SDC) | payer MEDICARE ==
[~2022-11-19] VITALS: Ht 157.5 cm; Wt 47.6 kg
[~2022-11-19 06:38] MED LIST changes: +ALENDRONATE SOD70 MG PO; +CRESTOR5 MG PO; +DIPHEN/ATROP2.5 MG PO; +FIRVANQ25 MG/ML PO; +NEURONTIN100 MG PO; +PEPCID20 MG PO; +PROTONIX40 M2 PO; +SERTRALINE50 MG PO; +TRAMADOL HCL50 MG PO
[2022-11-19 08:52] VITALS: BP 131/79
== END 2022-11-19 09:07 | disposition home or self-care (01) ==
LOC: ENDO 06:38 → ORM 17:30
PROVIDERS: ATTEND Internal Medicine Gastroenterology
PROC: 0DBB8ZX Excision of Ileum, Via Natural or Artificial Opening Endoscopic, Diagnostic (ICD-10-PCS; principal; 2022-11-19)
PROC: 0DBL8ZX Excision of Transverse Colon, Via Natural or Artificial Opening Endoscopic, Diagnostic (ICD-10-PCS; 2022-11-19)
PROC: 0DBP8ZX Excision of Rectum, Via Natural or Artificial Opening Endoscopic, Diagnostic (ICD-10-PCS; 2022-11-19)
PROC: 0DBF8ZX Excision of Right Large Intestine, Via Natural or Artificial Opening Endoscopic, Diagnostic (ICD-10-PCS; 2022-11-19)
PROC: 0DBG8ZX Excision of Left Large Intestine, Via Natural or Artificial Opening Endoscopic, Diagnostic (ICD-10-PCS; 2022-11-19)
DX: K52.9 Noninfective gastroenteritis and colitis, unspecified (principal); K64.8 Other hemorrhoids; K62.1 Rectal polyp; Z86.19 Personal history of other infectious and parasitic diseases

== ENCOUNTER 2022-12-24 13:37 | Emergency (ER) | payer MEDICARE ==
[2022-12-24] VITALS (11 sets, daily range): BP systolic 150–179; BP diastolic 63–93
[~2022-12-24] VITALS: Ht 157.5 cm; Wt 49.0 kg
[2022-12-24] MEDS ORDERED: NAPROXEN220 MG PO (17:35)
[2022-12-24] MEDS ORDERED: TRAMADOL HYDROC50 M1 PO (17:35)
[2022-12-24] MEDS ORDERED: ONDANSETRON4 MG PO (17:35)
== END 2022-12-24 17:54 | disposition home or self-care (01) ==
LOC: ED 13:37
DX: S90.31XA Contusion of right foot, initial encounter (principal); F41.9 Anxiety disorder, unspecified; W16.522A Jumping or diving into swimming pool striking bottom causing other injury, initial encounter; Y93.11 Activity, swimming; Y92.008 Other place in unspecified non-institutional (private) residence as the place of occurrence of the external cause

== ENCOUNTER 2024-07-04 16:13 | Emergency (ER) | payer MEDICARE ==
[2024-07-04] VITALS (13 sets, daily range): BP systolic 146–171; BP diastolic 72–87
[~2024-07-04] VITALS: Ht 157.5 cm; Wt 41.0 kg
[~2024-07-04 16:13] MED LIST changes: +NAPROXEN220 MG PO; +ONDANSETRON4 MG PO; +TRAMADOL HYDROC50 M1 PO
[2024-07-04] MEDS ORDERED: ONDANSETRON HCl 4 MG/2 ML SDV IV ONE (16:30)
[2024-07-04] MEDS ORDERED: SODIUM CHLORIDE 0.9% 1,000 ML IV ONE (16:30)
[2024-07-04] MEDS ORDERED: KETOROLAC TROMETHAMINE 30 MG/ML SDV IV ONE (16:30)
[2024-07-04 17:13] LABS: BASO% 0.5 % (0-3); HEMOGLOBIN 12.5 g/dl (12.0-16.0); IMMATURE GRANULOCYTES 0.2 % (0.0-5.0); LYMPH% 23.2 % (15-41); MEAN CELL VOLUME 90.2 fL CALC (80.0-100.0); MEAN CORPUSCULAR HGB 30.5 pG CALC (26.0-32.0); MEAN CORPUSCULAR HGB CONC 33.8 g/dL CAL (32.0-36.0); MONO% 7.7 % (2-13); NEUT# 6.39 thou/uL (2.00-7.15); NEUT% 65.4 % (42-76); RED BLOOD COUNT 4.1 mill/uL (4.20-5.60); RED CELL DISTRI WIDTH 11.5 % (11.5-15.5)
[2024-07-04 17:28] LABS: CREATININE 0.7 mg/dL (0.5-1.0); POTASSIUM 3.9 mmol/l (3.5-5.1)
[2024-07-04 17:29] LABS: ALBUMIN 3.8 g/dL (3.2-5.0); BILIRUBIN, TOTAL 0.3 mg/dL (0.02-1.3); TOTAL PROTEIN 6.4 g/dL (6.3-8.2)
[2024-07-04 17:46] LABS: URINE BILIRUBIN - DIPSTICK Negative (NEGATIVE); URINE BLOOD DIPSTICK Trace-lysed (NEGATIVE); URINE GLUCOSE - DIPSTICK Negative (NEGATIVE); URINE KETONE Negative (NEGATIVE); URINE LEUK ESTERASE Negative (NEGATIVE); URINE NITRITE - DIPSTICK Negative (Negative); URINE PH 5.5 (4.5-8.0); URINE PROTEIN - DIPSTICK Negative (NEG-TRACE); URINE SPECIFIC GRAVITY >=1.030; URINE UROBILINOGEN - DIPSTICK 0.2 E.U./dL (0.2)
[2024-07-04 17:47] LABS: URINE COLOR Yellow
[2024-07-04] MEDS ORDERED: LACTATED RINGER'S 1,000 ML IV ONE (19:40)
[2024-07-04] MEDS ORDERED: DICYCLOMINE HYD10 MG PO (20:02)
[2024-07-04] MEDS ORDERED: ONDANSETRON4 MG PO (20:02)
[2024-07-04] MEDS ORDERED: ONDANSETRON 4 MG/TAB ODT PO ONE (20:05)
[2024-07-04] MEDS ORDERED: DICYCLOMINE HCL 10 MG/CAP PO ONE (20:05)
== END 2024-07-04 20:20 | disposition home or self-care (01) ==
LOC: ED 16:13
PROVIDERS: Family Medicine
DX: A08.4 Viral intestinal infection, unspecified (principal)
CPT/HCPCS: Q9967

== ENCOUNTER 2024-07-07 15:45 | Inpatient (IN) | payer MEDICARE ==
[~2024-07-07] VITALS: Ht 157.5 cm; Wt 42.0 kg
[~2024-07-07 15:45] MED LIST changes: +DICYCLOMINE HYD10 MG PO
--- NOTE | 2024-07-07 16:00 | NUR ---
Patient arrived as a direct admit from Dr Flynn office for abdominal pain, nausea. Patient is A&Ox4, on room air, patient was able to walk to bed from wheelchair independently with a steady gait, skin intact. at bedside.
[2024-07-07 16:08] VITALS: BP 137/83
[2024-07-07] MEDS ORDERED: LORazepam 0.5 MG/TAB PO PRN (16:30)
[2024-07-07] MEDS ORDERED: SODIUM CHLORIDE 0.9% 10 ML SYR IV PRN (16:30)
[2024-07-07] MEDS ORDERED: ACETAMINOPHEN 325 MG/TAB PO PRN (16:30)
[2024-07-07] MEDS ORDERED: ALUM & MAG HYDROX-SIMETHICONE 30 ML PO PRN (16:30)
[2024-07-07] MEDS ORDERED: Polyethylene Glycol 3350 17 GM/PKT PO PRN (16:30)
[2024-07-07] MEDS ORDERED: ONDANSETRON HCl 4 MG/2 ML SDV IV PRN (16:35)
[2024-07-07] MEDS ORDERED: HYDROmorphone HCL 2 MG/AMP IV PRN (16:35)
[2024-07-07 16:46] LABS: BASO% 0.6 % (0-3); HEMATOCRIT 41.4 % (37.0-47.0); HEMOGLOBIN 14.3 g/dl (12.0-16.0); IMMATURE GRANULOCYTES 0.2 % (0.0-5.0); LYMPH% 18.8 % (15-41); MEAN CELL VOLUME 88.3 fL CALC (80.0-100.0); MEAN CORPUSCULAR HGB 30.5 pG CALC (26.0-32.0); MEAN CORPUSCULAR HGB CONC 34.5 g/dL CAL (32.0-36.0); MONO% 6.2 % (2-13); NEUT# 7.4 thou/uL (2.00-7.15); NEUT% 72.2 % (42-76); RED BLOOD COUNT 4.69 mill/uL (4.20-5.60); RED CELL DISTRI WIDTH 11.1 % (11.5-15.5)
[2024-07-07 17:03] LABS: ALBUMIN 4.4 g/dL (3.2-5.0); BILIRUBIN, TOTAL 0.4 mg/dL (0.02-1.3); CREATININE 0.7 mg/dL (0.5-1.0); POTASSIUM 3.3 mmol/l (3.5-5.1); TOTAL PROTEIN 7.2 g/dL (6.3-8.2)
--- NOTE | 2024-07-07 17:30 | NUR ---
Lab called and patient is positive for CDIFF, notified Dr Villalobos.
[2024-07-07 17:43] LABS: C. DIFFICILE TOXIN A&B POSITIVE (NEGATIVE)
[2024-07-07] MEDS ORDERED: VANCOMYCIN HCL 125 MG/CAP PO SCH (18:00)
[2024-07-07] MEDS ORDERED: SODIUM CHLORIDE 0.9% 1,000 ML IV PRN (18:05)
--- NOTE | 2024-07-07 18:45 | NUR ---
Patient is still having nausea/ vomiting despite the zofran being given. Reached out to Dr Villalobos and phenergan ordered. Faxed to [facility].
[2024-07-07 19:00] VITALS: BP 180/85
[2024-07-07] MEDS ORDERED: PROMETHAZINE HCL 25 MG/ML AMP IV PRN (19:20)
[2024-07-07] MEDS ORDERED: LEVOTHYROXIN25 MC1 PO (19:33)
[2024-07-07] MEDS ORDERED: BUSPAR10 M1 PO (19:34)
[2024-07-07] MEDS ORDERED: MYSOLINE50 M1 PO (19:36)
[2024-07-07] MEDS ORDERED: ALPRAZOLAM0.5 M2 PO (19:40)
[2024-07-07] MEDS ORDERED: ALPRAZOLAM XR0.5 MG PO (19:42)
[2024-07-07] MEDS ORDERED: TRINTELLIX5 MG PO (19:44)
--- NOTE | 2024-07-07 19:45 | NUR ---
BEDSIDE REPORT COMPLETED. RESP EVEN AND UNLABORED. CALL LIGHT IN REACH. DENIES NEEDS AT CURRENT TIME.
--- NOTE | 2024-07-07 21:30 | NUR ---
C/O ABD PAIN AND NAUSEA. DILAUDID AND PHENERGAN GIVEN PER PRN ORDERS. HAS NOT VOMITED SINCE FIRST COMING ONTO THE UNIT.
[2024-07-07] MEDS ORDERED: SODIUM CHLORIDE 0.9% 10 ML SYR IV SCH (22:00)
[2024-07-07 23:29] VITALS: BP 158/75
[2024-07-08] VITALS (12 sets, daily range): BP systolic 121–158; BP diastolic 66–77
[2024-07-08] MEDS ORDERED: VANCOMYCIN HCL 125 MG/CAP PO SCH
--- NOTE | 2024-07-08 | NUR ---
GOOD RESULTS FROM PHENERGAN, ABLE TO TOLERATE DILAUDID WITH NO VOMITING. PHENERGAN HELPED WITH NAUSEA ALSO. DENIES NEEDS AT CURRENT TIME. CONTINUES ON C-DIFF PRECAUTIONS. PROTECTIVE GOWN AND GLOVES WORN WHEN IN ROOM. CALL LIGHT IN REACH.
[2024-07-08 02:28] LABS: URINE BLOOD DIPSTICK Negative (NEGATIVE); URINE GLUCOSE - DIPSTICK Negative (NEGATIVE); URINE KETONE 15 mg/dL (NEGATIVE); URINE LEUK ESTERASE Negative (NEGATIVE); URINE NITRITE - DIPSTICK Negative (Negative); URINE PROTEIN - DIPSTICK Trace mg/dL (NEG-TRACE); URINE UROBILINOGEN - DIPSTICK 0.2 E.U./dL (0.2)
[2024-07-08 03:37] LABS: URINE COLOR Yellow
--- NOTE | 2024-07-08 04:00 | NUR ---
RESTING IN BED WITH EYES CLOSED. RESP EVEN AND UNLABORED. RESTING WELL. NO C/O NOTED. STATES STILL HAS SOME NAUSEA. CALL LIGHT IN REACH.
[2024-07-08 06:06] LABS: BILIRUBIN, TOTAL 0.3 mg/dL (0.02-1.3); CREATININE 0.6 mg/dL (0.5-1.0); POTASSIUM 3.4 mmol/l (3.5-5.1)
[2024-07-08 06:14] LABS: ALBUMIN 3.3 g/dL (3.2-5.0); TOTAL PROTEIN 5.7 g/dL (6.3-8.2)
--- NOTE | 2024-07-08 07:53 | NUR ---
SHIFT CHANGE REPORT, PT AWAKE ALERT AND ORIENTED RESTIN GIN BED, C/O MILD PAIN @ 2/10, IVF INFUSING, CALL LOW IN REACH AND BED LOCKED IN LOWEST POSITION.
[2024-07-08] MEDS ORDERED: POTASSIUM CHLORIDE 20 MEQ/TAB PO SCH (08:00)
--- NOTE | 2024-07-08 08:38 | NUR ---
EDUCATED ON BENEFITS OF ANAYA STOCKINGS AND CONSENTED TO IT PLACED, PT IS ALSO SMOKER, INFORMED OF NICOTINE PATCH IF NEEDED AND CONSENTED TO HEAVE ONE PLACED.
[2024-07-08] MEDS ORDERED: 0.9% NaCL W/KCL 20 MEQ 1,000 ML IV PRN (11:35)
--- NOTE | 2024-07-08 16:19 | NUR ---
C/O PAIN @ IV SITE, FLUIDS PAUSED TEMPORARILY UNTIL NEW CATHETER PLACED, ALL OTHER NEEDS MET/ADDRESSED.
--- NOTE | 2024-07-08 21:10 | NUR ---
PATIENT REQUESTED PAIN MEDICATION. DILAUDIDOBTAINED FROM [facility], IV INFILTRATED DURING INITIAL FLUSH WITH SALINE BEFORE GIVING PAIN MED. ATTEMPTED TO INSERT SALINE LOC X2 TRIES UNSUCCESSFULLY. TEASELER CALLED AND DILAUDID WASTED.
--- NOTE | 2024-07-08 22:30 | NUR ---
MANAGER PORT CAME AND INSERTED 22G INTO LEFT AC. DILAUDID AND PHENERGAN GIVEN PER PRN ORDER. STATES THE PHENERGAN HELPS ALOT WHEN GIVEN WITH THE PAIN MEDICATION. STATES SHE IS STILL HAVING SEVERAL LIQUID STOOLS PER DAY. HAS INTERMITTENT CRAMPING/STABBING LIKE PAIN IN ABD AND INTESTINAL AREA.
[2024-07-09] VITALS (8 sets, daily range): BP systolic 128–173; BP diastolic 61–80
--- NOTE | 2024-07-09 00:20 | NUR ---
ABLE TO TAKE ABT WITH VERY LITTLE NAUSEA. REQUESTED ATIVAN FOR SLEEP. IV INSERTED INTO LEFT AC CONTINUES TO BE PATENT. IV FLUIDS INFUSING ORDERED. AMBULATES TO BATHROOM WITH STANDBY ASSIST. CALL LIGHT IN REACH.
[2024-07-09 05:04] LABS: EOS% 3.8 % (0-8); HEMATOCRIT 35.5 % (37.0-47.0); IMMATURE GRANULOCYTES 0.2 % (0.0-5.0); LYMPH% 31.3 % (15-41); MEAN CELL VOLUME 90.6 fL CALC (80.0-100.0); MEAN CORPUSCULAR HGB 31.1 pG CALC (26.0-32.0); MEAN CORPUSCULAR HGB CONC 34.4 g/dL CAL (32.0-36.0); MONO% 9.8 % (2-13); NEUT# 3.14 thou/uL (2.00-7.15); NEUT% 53.9 % (42-76); RED BLOOD COUNT 3.92 mill/uL (4.20-5.60); RED CELL DISTRI WIDTH 11.5 % (11.5-15.5)
[2024-07-09 05:10] LABS: ALBUMIN 3.3 g/dL (3.2-5.0); BILIRUBIN, TOTAL 0.3 mg/dL (0.02-1.3); CREATININE 0.6 mg/dL (0.5-1.0); MAGNESIUM 1.7 mg/dL (1.6-2.3); TOTAL PROTEIN 5.7 g/dL (6.3-8.2)
[2024-07-09 05:17] LABS: HEMOGLOBIN 12.2 g/dl (12.0-16.0)
[2024-07-09] MEDS ORDERED: LEVOTHYROXINE SODIUM 25 MCG/TAB PO SCH (06:00)
--- NOTE | 2024-07-09 06:00 | NUR ---
RESTED WELL THROUGHOUT NIGHT. STILL HAVING LIQUID STOOL. HAS EPISODES OF CRAMPING CAUSING PAIN TO ABDOMEN. IV IN LEFT AC PATIENT. BEGINNING TO BE TENDER ALSO. WILL NEED TO HAVE MIDLINE IF STAYS IN HOSPITAL ANY LONGER. WILL NOTIFY MD. MEDICATED WITH ZOFRAN AND DILAUDUD PER PRN ORDER.
--- NOTE | 2024-07-09 08:00 | NUR ---
PT IS SITTING IN BED, SHE JUST GOT BACK FROM THE BATHRROM AND STATED THAT SHE HAS BEEN HAVING MULTIPLE BMS THROUGHOUT THE NIGHT. PT STATES " I JUST WENT TO THE BATHROOM AND FOR THE FIRST TIME IT WAS JUST GAS." ASSESSMENT COMPLETED CHARTED. PT IS HAVING 4/10 PAIN IN STOMACH. PT ALSO BEING STARTED ON NEW BP MED AND WILL CONTINUE TO BE MONITORED FOR BP CHANGES. CALL LIGHT IN REACH AND BED IN LOWEST POSITION WITH WHEELS LOCKED.
[2024-07-09] MEDS ORDERED: amLODIPine BESYLATE 5 MG/TAB PO SCH ×2 (09:00→15:30)
[2024-07-09] MEDS ORDERED: LIDOCAINE 4 % PATCH TD SCH (09:00)
[2024-07-09] MEDS ORDERED: VANCOMYCIN HCL 125 MG/CAP PO SCH ×2 (12:00)
[2024-07-09] MEDS ORDERED: YEAST (S. BOULARDII)(S. CEREVI 250 MG CAP PO SCH (12:00)
--- NOTE | 2024-07-09 12:00 | NUR ---
PT IS RESTING IN BED WITH EYES CLOSED, NO COMPLAINTS AT THIS TIME. NO DISTRESS NOTED. BED IS IN LOW POSTION. CALL L;IGHT AND BELONGINGS NEXT TO PT.
--- NOTE | 2024-07-09 18:09 | NUR ---
PT IS SITTING IN BED VISITING WITH HER . NO SIGNS OF DISTRESS AND WILL CONTINUE TO MONITOR FOR SAFETY
--- NOTE | 2024-07-09 19:30 | NUR ---
PATIENT IN ROOM RESTING IN BED. BEDSIDE ASSESSMENT COMPLETE. A&O, CAN MAKE NEEDS KNOWN NONE NEEDED AT THIS TIME. UNLABORED BREATHING ON ROOM AIR. BOWEL SOUNDS PRESENT. PEDAL PULSES EQUAL. SAFTY PREACATIONS IN PLACE WITH BED AT LOWEST POSITION. CALL LIGHT WITH IN REACH.
--- NOTE | 2024-07-09 23:50 | NUR ---
PATIENT IN ROOM RESTING IN BED. PATIENT RESPONDS TO VERBAL STIMULI. UNLABORED BRETHING. NO VISUAL SIGNS OF DISTRESS. SAFTY PRECAUTIONS IN PLACE. BED AT LOWEST POSITION. CALL LIGHT WITHIN REACH.
[2024-07-10] VITALS (8 sets, daily range): BP systolic 125–178; BP diastolic 65–83
--- NOTE | 2024-07-10 04:22 | NUR ---
PATIENT IN ROOM RESTING IN BEDWIT EYES CLOSED. PATIENT RESPONDS TO VERBAL STIMULI. UNLABORD BREATHING, NO VISUAL SIGNS OF DISTRERSS. BED AT LOWEST POSITION. CALL LIGHT WITHIN REACH.
[2024-07-10 05:48] LABS: EOS% 5.8 % (0-8); HEMOGLOBIN 12.4 g/dl (12.0-16.0); IMMATURE GRANULOCYTES 0.3 % (0.0-5.0); LYMPH% 26.9 % (15-41); MEAN CELL VOLUME 90.5 fL CALC (80.0-100.0); MEAN CORPUSCULAR HGB 31.2 pG CALC (26.0-32.0); MEAN CORPUSCULAR HGB CONC 34.4 g/dL CAL (32.0-36.0); MONO% 10.1 % (2-13); NEUT# 3.19 thou/uL (2.00-7.15); NEUT% 55.9 % (42-76); RED BLOOD COUNT 3.98 mill/uL (4.20-5.60); RED CELL DISTRI WIDTH 11.4 % (11.5-15.5)
[2024-07-10 05:56] LABS: ALBUMIN 3.3 g/dL (3.2-5.0); BILIRUBIN, TOTAL 0.3 mg/dL (0.02-1.3); CREATININE 0.6 mg/dL (0.5-1.0); MAGNESIUM 1.6 mg/dL (1.6-2.3); POTASSIUM 4.1 mmol/l (3.5-5.1); TOTAL PROTEIN 5.8 g/dL (6.3-8.2)
--- NOTE | 2024-07-10 08:00 | NUR ---
PT IS SITTING IN BED AOX3. STATES SHE HAS A 6/10 PAIN SCALE IN HER ABDOMEN WELL SOME NAUSEA. ASSESSMENT COMPLETED CHARTED. PT WAS UPDATED ON PLAN OF CARE, ON CONTINUOUS CARDIAC MONITORING. BED IS IN LOW POSITION FOR SAFETY WITH CALL LIGHT IN REACH.
[2024-07-10] MEDS ORDERED: amLODIPine BESYLATE 5 MG/TAB PO SCH (09:00)
--- NOTE | 2024-07-10 12:00 | NUR ---
PT RESTING IN BED WITH EYES CLOSED AND THE LIGHT TURNED OFF FOR COMFORT. PT STATES " I HAVENT HAD ANY BMS TODAY, I FELT LIKE I WAS GOING TO BUT I DIDNT." PT HAS INTERMITTENT NAUSEA AND CRAMPS. MEDICATED PER
--- NOTE | 2024-07-10 18:00 | NUR ---
PT IS SITTING IN BED VISITING WITH A VISITOR
--- NOTE | 2024-07-10 19:26 | NUR ---
REPORT RECIEVED. PT A/OX4. ASSESSMENT COMPLETED. O2 >92 ON ROOM AIR. 2L NC APPLED. RR EVEN AND UNLABORED. LUNG SOUNDS DIMINISHED. PT REPORTS N/V FOR PAST HOUR AND CONTIUES TO DRYHEIVE. MEDICATED PER EMAR. NEW #22G RH STARTED, INF PER ORDER.#22 LAC INFILTRATED. PT STATES PAIN IS 7/10 IN ABD, TO BE MEDICATED PER EMAR. PT DENIES OF ANY NEEDS AT THIS TIME. ALL SAFETY PRECAUTIONS ARE IN PLACE WITH CALL LIGHT IN REACH.
[2024-07-11 00:47] VITALS: BP 165/79
--- NOTE | 2024-07-11 00:50 | NUR ---
PT RESTING IN SEMI FOWLERS POSITION. RR EVEN AND UNLABORED ON 2L NC. TELE MONITORING IN PLACE.PT STATES NAUSEA HAS IMPROVED. PT REQUEST SLEEPING PILL, ATIVAN ADMINISTERED. PT DENIES OF ANY ADDITIONAL NEEDS. ALL SAFETY PRECAUTIONS ARE IN PLACE WITH CALL LIGHT IN REACH
[2024-07-11 03:20] VITALS: BP 156/71
--- NOTE | 2024-07-11 03:50 | NUR ---
PT RESTING IN SEMI FOWLERS POSITION. RR EVEN AND UNLABORED ON 2L NC. TELE MONITORING IN PLACE. ASSISTED TO AND FROM BATHROOM. PT DENIES OF ANY NEEDS. ALL SAFETY PRECAUTIONS ARE IN PLACE WITH CALL LIGHT IN REACH.
[2024-07-11 04:55] LABS: BASO% 1.5 % (0-3); EOS% 5.2 % (0-8); HEMATOCRIT 37.1 % (37.0-47.0); HEMOGLOBIN 12.7 g/dl (12.0-16.0); IMMATURE GRANULOCYTES 0.2 % (0.0-5.0); MEAN CELL VOLUME 90.5 fL CALC (80.0-100.0); MEAN CORPUSCULAR HGB CONC 34.2 g/dL CAL (32.0-36.0); MONO% 12.1 % (2-13); NEUT# 2.45 thou/uL (2.00-7.15); RED BLOOD COUNT 4.1 mill/uL (4.20-5.60); RED CELL DISTRI WIDTH 11.3 % (11.5-15.5)
[2024-07-11 05:06] LABS: ALBUMIN 3.4 g/dL (3.2-5.0); BILIRUBIN, TOTAL 0.3 mg/dL (0.02-1.3); CREATININE 0.6 mg/dL (0.5-1.0); MAGNESIUM 1.6 mg/dL (1.6-2.3); POTASSIUM 4.1 mmol/l (3.5-5.1); TOTAL PROTEIN 5.8 g/dL (6.3-8.2)
[2024-07-11 07:00] VITALS: BP 154/71
--- NOTE | 2024-07-11 07:06 | NUR ---
PATIENT LAYING IN BED, WATCHING TV. PATIENT A&OX4 AND ABLE TO MAKE NEEDS KNOWN. PATIENT ABDOMEN SOFT BUT TENDER, RESPIRATIONS EVEN AND UNLABORED. PATIENT DENIES ANY NEEDS AT THIS TIME. WILL CONTINUE TO MONITOR.
[2024-07-11 11:12] VITALS: BP 146/73
--- NOTE | 2024-07-11 12:00 | NUR ---
PATIENT SITTING UP IN BED, HAVING LUNCH. PATIENT DENIES ANY NEEDS AT THIS TIME. WILL CONTINUE TO MONITOR.
[2024-07-11 15:16] VITALS: BP 129/66
--- NOTE | 2024-07-11 15:42 | NUR ---
PATIENT LAYING IN BED. PATIENT DENIES ANY NEEDS AT THIS TIME. WILL CONTINUE TO MONITOR.
[2024-07-11 18:40] VITALS: BP 129/66
--- NOTE | 2024-07-11 19:30 | NUR ---
[facility] JOAN ARREOLA. PT RESTING IN BED WATCHING TELEVISION. PT IS A&OX4, AND ABLE TO MAKE NEEDS KNOWN. FAMILY AT BEDSIDE. PT REMAINS ON CONTACT + PRECAUTIONS. PT COMPLAINING OF NAUSEA, PT MEDICATED ON PRIOR SHIFT @1850, WILL REASSESS NAUSEA. PT STATES THAT HER LAST BM WAS TODAY, 07-11-2024, STATING THAT IS WAS NOT LOOSE. BOWEL SOUNDS ACTIVE X4 QUADRANTS. LUNG SOUNDS CLEAR UPON AUSCULTATION. TELE MONITOR REMAINS IN PLACE. PT IS ON 2L O2 VIA NC. NO S&S OF DISTRESS NOTED. LIDOCAINE PATCH NOTED TO (R) SHOULDER. PT REFUSING ANAYA HOSE AT THIS TIME. PT STATES THAT PAIN IS AT A 3 IN (R) SHOULDER AND ABDOMEN AFTER BEING MEDICATED FOR PAIN ON PRIOR SHIFT. PERIPHERAL PULSES STRONG. NO FUTHER COMPLAINTS OFFERED AT THIS TIME. PT EDUCATED ON POC AND MEDICATION SCHEDULE. CALL LIGHT IN REACH, AND SAFETY PRECAUTIONS IN PLACE.
--- NOTE | 2024-07-12 | NUR ---
PT RESTING IN BED. PT STATES THAT SHE HAS PAIN IN HER (R) SHOULDER AND ABDOMEN, WILL FOLLOW UP PER EMAR. NO FURTHER COMPLAINTS OFFERED. TELE MONITOR REMAINS IN PLACE. PT REMAINS ON ROOM AIR. NO S&S OF DISTRESS NOTED. CALL LIGHT IN REACH, AND SAFETY PRECAUTIONS REINFORCED.
--- NOTE | 2024-07-12 | NUR ---
PT RESTING IN BED. PT COMPLAINING OF PAIN IN ABDOMEN AND (R) SHOULDER, WILL FOLLOW UP PER EMAR. TELE REMAINS IN PLACE. PT REMAINS ON 2L O2 VIA NC. NO S&S OF DISTRESS NOTED. RELAXATION TECHNIQUES OFFERED. CALL LIGHT IN REACH, AND SAFETY PRECAUTIONS IN PLACE.
[2024-07-12 00:10] VITALS: BP 152/73
--- NOTE | 2024-07-12 04:00 | NUR ---
PT RESTING IN BED WITH EYES CLOSED. RESPIRATIONS ARE EVEN AND UNLABORED. PT IS EASILY AROUSABLE. NO COMPLAINTS OFFERED AT THIS TIME. NO NAUSEA OR VOMITTING NOTED. NO S&S OF DISTRESS NOTED. TELE MONITOR REMAINS IN PLACE. PT REMAINS ON 2L 02 VIA CA. CALL LIGHT IN REACH, AND SAFETY PRECAUTIONS IN PLACE.
[2024-07-12 04:22] VITALS: BP 113/59
--- NOTE | 2024-07-12 07:00 | NUR ---
PATIENT LAYING IN BED, WATCHING TV. PATIENT A&OX4 AND ABLE TO MAKE NEEDS KNOWN. PATIENT DENIES ANY NEEDS AT THIS TIME. WILL CONTINUE TO MONITOR.
[2024-07-12 08:25] VITALS: BP 139/73
[2024-07-12] MEDS ORDERED: DICYCLOMINE HYD10 MG PO (09:49)
[2024-07-12] MEDS ORDERED: AMLODIPINE BESYL5 MG PO (09:50)
[2024-07-12] MEDS ORDERED: (None)125 MG PO (09:52)
[2024-07-12] MEDS ORDERED: LORTAB 5/3255 MG PO (09:53)
--- NOTE | 2024-07-12 11:39 | NUR ---
Discharge instructions given. Patient verbalizes understanding of same. Discharged in stable condition via Wheelchair to Home with staff. All belongings sent with pt. PATIENT IV AND TELE REMOVED AND PLACED IN NURSING STATION.
== END 2024-07-12 11:38 | disposition home or self-care (01) | DRG 373 ==
LOC: MS2 15:45
PROVIDERS: Nurse Practitioner Family; ADMIT Internal Medicine; ATTEND Internal Medicine
DX: A04.71 Enterocolitis due to Clostridium difficile, recurrent (principal); E87.6 Hypokalemia; I10 Essential (primary) hypertension; E03.9 Hypothyroidism, unspecified; F41.9 Anxiety disorder, unspecified; F17.200 Nicotine dependence, unspecified, uncomplicated